=== PATIENT | female | born 1980 | race Caucasian/White ===

== ENCOUNTER 2017-08-20 20:54 | Emergency (ER) | payer BC, MEDICAID, OTHER ==
[2017-08-20 20:54] VITALS: BMI 38.7
[2017-08-20 21:00] VITALS: BP 142/94; TEMP 98.7
--- NOTE | 2017-08-20 21:49 | ED PDOC ---
Arrival/HPI - General Historian: Patient - History of Present Illness Time/Duration: 1 week Symptom Course: Worsening Quality: Burning Context: Exertion - General Chief Complaint: Lower Extremity Problem/Injury Time Seen by Provider: 08/20/17 21:07 - History of Present Illness Narrative History of Present Illness (Text): 08/20/17 21:46 This is a 37 yo female with pmh of diabetes and asthma presenting with leg swelling x 1 week. Never happened before. Pt says she was diagnosed with DM last year but was recently told her A1C was normal and she could stop taking her diabetic medications. Reports burning in her toes as well. Reports some chronic sob related to her smoking. No fevers, chills, cough, other systemic sx. PMH: DM, asthma PSH: C section Allergies: NKDA FH: Denies Home meds: none Social hx: Current smoker. 1 ppd. No drinking or drugs. (Damian Rizo) Past Medical History - Provider Review Nursing Documentation Reviewed: Yes - Travel History Have you recently traveled outside [place] w/in the past 3 mons?: No - Past History Past History: No Previous - Infectious Disease Hx of Infectious Diseases: None - Cardiac Hx Cardiac Disorders: Yes Hx Hypertension: Yes - Pulmonary Hx Respiratory Disorders: Yes Hx Asthma: Yes Hx Chronic Obstructive Pulmonary Disease (COPD): Yes - Neurological Hx Neurological Disorder: No - HEENT Hx HEENT Disorder: No - Renal Hx Renal Disorder: No - Endocrine/Metabolic Hx Endocrine Disorders: Yes Hx Diabetes Mellitus Type 1: Yes Hx Diabetes Mellitus Type 2: Yes - Hematological/Oncological Hx Blood Disorders: No - Integumentary Hx Dermatological Disorder: No - Musculoskeletal/Rheumatological Hx Musculoskeletal Disorders: Yes Hx Arthritis: Yes - Gastrointestinal Hx Gastrointestinal Disorders: No - Genitourinary/Gynecological Hx Genitourinary Disorders: No - Psychiatric Hx Psychophysiologic Disorder: Yes Hx Anxiety: Yes Hx Depression: Yes Hx Panic Disorder: Yes Hx Post Traumatic Stress Disorder: Yes Hx Substance Use: No - Past Surgical History Past Surgical History: No Previous - Surgical History Hx Section: Yes - Anesthesia Hx Anesthesia: Yes Hx Anesthesia Reactions: No Hx Malignant Hyperthermia: No - Suicidal Assessment Feels Threatened In Home Enviroment: No Family/Social History - Physician Review Nursing Documentation Reviewed: Yes Family/Social History: No Known Family HX Smoking Status: Current Some Days Smoker Hx Alcohol Use: No Hx Substance Use: No Hx Substance Use Treatment: No Allergies/Home Meds Allergies/Adverse Reactions: Allergies No Known Allergies Allergy (Verified 08/20/17 20:57) per patient Home Medications: Home Meds Medication Instructions Recorded Confirmed Haloperidol [Haldol] 0.5 mg PO HS 02/05/14 08/20/17 Insulin Aspart [Novolog] 100 unit SC HS 02/05/14 08/20/17 Insulin Glargine, Recombina 15 unit SC ACTID 02/05/14 08/20/17 [Lantus] Metformin HCl [Metformin] 1,000 mg PO DAILY 02/05/14 08/20/17 Dextroamphetamine/Amphetamine 1 tab PO BID 12/09/15 08/20/17 [Adderall 10 mg Tablet] Dicyclomine HCl 1 tab PO DAILY 12/09/15 08/20/17 Metoclopramide [Reglan] 1 tab PO TID 12/09/15 08/20/17 Ranitidine HCl [[place] 75] 1 tab PO DAILY 12/09/15 08/20/17 Albuterol HFA [Ventolin HFA 90 0.09 mg IH DAILY PRN 12/14/15 08/20/17 mcg/actuation (8 g)] Clonazepam 0.5 mg PO DAILY 12/14/15 08/20/17 Enalapril Maleate [Enalapril] 10 mg PO DAILY 12/14/15 08/20/17 Lactulose [Generlac] 10 gm PO DAILY 12/14/15 08/20/17 buPROPion [Bupropion HCl] 400 mg PO DAILY 12/14/15 08/20/17 Review of Systems - Review of Systems Constitutional: absent: Fatigue, Fevers, Night Sweats Eyes: absent: Vision Changes ENT: absent: Hearing Changes, Tinnitus Respiratory: SOB. absent: Cough, Wheezing Cardiovascular: Calf Pain. absent: Chest Pain, Palpitations Gastrointestinal: absent: Abdominal Pain, Constipation Genitourinary Female: absent: Dysuria, Frequency Musculoskeletal: absent: Arthralgias, Back Pain Skin: absent: Rash, Pruritis Neurological: absent: Headache, Dizziness Endocrine: absent: Diaphoresis, Polyuria Hemo/Lymphatic: absent: Adenopathy, Easy Bleeding Psychiatric: absent: Anxiety, Depression Physical Exam Vital Signs Reviewed: Yes Temperature: Afebrile Blood Pressure: Normal Finger Stick Blood Glucose: 91 - Systems Exam Head: Present: Atraumatic, Normocephalic Pupils: Present: PERRL Extroacular Muscles: Present: EOMI Conjunctiva: Present: Normal Mouth: Present: Moist Mucous Membranes Neck: Present: Normal Range of Motion Respiratory/Chest: Present: Clear to Auscultation Cardiovascular: Present: Regular Rate and Rhythm Abdomen: Present: Normal Bowel Sounds. No: Tenderness, Distention, Peritoneal Signs Upper Extremity: Present: Normal Inspection. No: Cyanosis, Edema Lower Extremity: Present: Edema, CALF TENDERNESS, Tenderness (tenderness right calf) Neurological: Present: GCS=15, CN II-XII Intact, Speech Normal Skin: Present: Warm, Dry Psychiatric: Present: Alert, Oriented x 3, Normal Insight, Normal Concentration Vital Signs Temp Pulse Resp BP Pulse Ox 08/20/17 20:59 98.7 F 98 H 17 142/94 H 98 Medical Decision Making ED Course and Treatment: 08/20/17 22:32 -ordering CBC, CMP -fingerstick -urine preg -venous dopplers B/L lower extremities urine preg negative fingerstick 91 dopplers pending 08/20/17 22:32 (Damian Rizo) In agreement with resident note, which includes further HPI details. Patient was seen and evaluated with resident, came up with plan and treatment together. (Romel Krishnan DO) - RAD Interpretation Radiology Orders: 08/20/17 21:39 DUPLEX LOWER EXTRM VEIN BILAT [US] Stat Disposition/Present on Arrival - Present on Arrival Any Indicators Present on Arrival: No History of DVT/PE: No History of Uncontrolled Diabetes: No Urinary Catheter: No History of Decub. Ulcer: No History Surgical Site Infection Following: None - Disposition Have Diagnosis and Disposition been Completed?: No - Disposition Diagnosis: Leg swelling Referrals: eSbastien Cardona MD [Primary Care Provider] - Follow up with primary Forms: [employer] (Sudanese)
[2017-08-20 22:40] LABS: BASO # 0.05 K/mm3 (0.0-2.0); BASO % 0.5 % (0.0-3.0); EOS # 0.2 (0.0-0.7); EOS % 2.3 % (1.5-5.0); GRAN # 6.28 (1.4-6.5); GRAN % 63.4 % (50.0-68.0); HEMATOCRIT 38.3 % (36.0-48.0); LYMPH # 2.8 (1.2-3.4); LYMPH % 27.7 % (22.0-35.0); MEAN CELL VOLUME 90.3 fl (80.0-105.0); MEAN CORPUSCULAR HEMOGLOBIN 29.5 pg (25.0-35.0); MEAN CORPUSCULAR HGB CONC 32.6 g/dl (31.0-37.0); MEAN PLATELET VOLUME 9.8 fl (7.0-11.0); MONO # 0.6 (0.1-0.6); MONO % 6.1 % (1.0-6.0); RED CELL DISTRIBUTION WIDTH 14.3 % (11.5-14.5); WHITE BLOOD COUNT 9.9 10^3/ul (4.5-11.0)
--- NOTE | 2017-08-20 23:26 | ED PDOC ---
Physical Exam Vital Signs Reviewed: Yes Vital Signs Temp Pulse Resp BP Pulse Ox 08/21/17 00:37 92 H 17 99 08/20/17 20:59 98.7 F 98 H 17 142/94 H 98 Temperature: Afebrile Blood Pressure: Normal Pulse: Regular Respiratory Rate: Normal Appearance: Positive for: Well-Appearing, Non-Toxic, Comfortable Pain Distress: None Mental Status: Positive for: Alert and Oriented X 3 Finger Stick Blood Glucose: 91 - Systems Exam Lower Extremity: Present: Normal Inspection, NORMAL PULSES (Strong DP/PT pulses) , Normal ROM, Neurovascularly Intact, Capillary Refill < 2 s. No: Edema, CALF TENDERNESS (No calf tenderness to palpation), Cyanosis, Tenderness, Swelling ( No swelling to bilateral feet/legs), Erythema (no erythema to bilateral feet/ legs), Deformity, Temperature Abnormalties Medical Decision Making ED Course and Treatment: 08/20/17 23:00 Case endorsed to me by Dr. Krishnan, who saw pt along with medical professionals. Pt , with past medical history of diabetes, presented complaining of burning sensation to right foot/toes. Pt also described occasional transient swelling, none now. Pt had undergone dopple of lower extremities, which was negative for DVT. Awaiting lab prior to final disposition. 08/21/17 00:11 Results of labs all normal. On re-evaluation, pt is well-appearing, in no acute distress. Patient is stable for discharge. Patient was instructed to follow up with physician/clinic in 1-2 days or return if symptoms persist/worsen or new concerning symptoms arise. - Lab Interpretations Lab Results: 08/20/17 22:15 08/20/17 23:35 Lab Results 08/20/17 23:35: Sodium 140, Potassium 3.7, Chloride 110 H, Carbon Dioxide 24, Anion Gap 10, BUN 11, Creatinine 0.7, Est GFR ( Amer) > 60, Est GFR (Non- Af Amer) > 60, Random Glucose 95, Calcium 8.8, Total Bilirubin 0.3, AST 16, ALT 35, Alkaline Phosphatase 59, Total Protein 6.7, Albumin 3.5, Globulin 3.2, Albumin/Globulin Ratio 1.1 08/20/17 22:15: WBC 9.9, RBC 4.24, Hgb 12.5, Hct 38.3, MCV 90.3, MCH 29.5, MCHC 32.6, RDW 14.3, Plt Count 274, MPV 9.8, Gran % 63.4, Lymph % (Auto) 27.7, [place] % (Auto) 6.1 H, Eos % (Auto) 2.3, Baso % (Auto) 0.5, Gran # 6.28, Lymph # 2.8, [place] # 0.6, Eos # 0.2, Baso # 0.05 I have reviewed the lab results: Yes - RAD Interpretation Radiology Orders: 08/20/17 21:39 DUPLEX LOWER EXTRM VEIN BILAT [US] Stat - Medication Orders Current Medication Orders: Ibuprofen (Motrin Tab) 600 mg PO STAT STA Stop: 08/21/17 00:43 Disposition/Present on Arrival - Present on Arrival Any Indicators Present on Arrival: No History of DVT/PE: No History of Uncontrolled Diabetes: No Urinary Catheter: No History of Decub. Ulcer: No History Surgical Site Infection Following: None - Disposition Have Diagnosis and Disposition been Completed?: Yes Diagnosis: Diabetic neuropathy Disposition: HOME/ ROUTINE Disposition Time: 00:39 Patient Plan: Discharge Condition: GOOD Discharge Instructions (ExitCare): Diabetic Neuropathy (ED) Additional Instructions: Take meds as prescribed/follow up with your doctor this week Prescriptions: Naproxen [Naprosyn] 500 mg PO BID PRN #14 tab PRN Reason: Pain Referrals: Sebastien Cardona MD [Primary Care Provider] - Follow up with primary Forms: [employer] (Macedonian)
[2017-08-20 23:57] LABS: ALB/GLOB RATIO 1.1 (1.1-1.8); ALKALINE PHOSPHATASE 59 U/L (38-126); ALT/SGPT 35 U/L (7-56); AST/SGOT 16 U/L (14-36); BILIRUBIN,TOTAL 0.3 mg/dL (0.2-1.3); BLOOD UREA NITROGEN 11 mg/dL (7-21); CALCIUM 8.8 mg/dL (8.4-10.5); CARBON DIOXIDE 24 mmol/L (21-33); CHLORIDE 110 mmol/L (98-107); GFR AFRICAN-AMERICAN > 60; GLUCOSE,RANDOM 95 mg/dL (70-110); POTASSIUM 3.7 mmol/L (3.6-5.0); SODIUM 140 mmol/L (132-148); TOTAL PROTEIN 6.7 g/dL (5.8-8.3)
[2017-08-21 00:37] VITALS: PULSE 92
[2017-08-21 01:12] VITALS: RESP 19; O2SAT 98
--- NOTE | 2017-08-21 09:02 | US ---
HISTORY: Leg pain and swelling. Evaluate for DVT PHYSICIAN(S): Elton Weiner MD. TECHNIQUE: Duplex sonography and color-flow Doppler with graded compression were used to evaluate the deep venous systems of both lower extremities. FINDINGS: The visualized deep venous systems of both lower extremities are sonographically normal and compressible. Normal wave forms and augmentation are seen. There is no sonographic evidence for deep venous thrombosis in the visualized segments of both lower extremities. IMPRESSION: No sonographic evidence for deep venous thrombosis in the visualized segments of both lower extremities.
== END 2017-08-21 01:12 | disposition home or self-care (01) ==
LOC: ED 20:54
DX: M79.89 Other specified soft tissue disorders (principal); E11.9 Type 2 diabetes mellitus without complications; I10 Essential (primary) hypertension; F17.210 Nicotine dependence, cigarettes, uncomplicated

== ENCOUNTER 2017-12-26 11:48 | Emergency (ER) | payer BC, MEDICAID, OTHER ==
[2017-12-26 11:48] VITALS: BMI 38.0
--- NOTE | 2017-12-26 12:05 | ED PDOC ---
Arrival/HPI - General Chief Complaint: Pain, Chronic Time Seen by Provider: 12/26/17 11:52 Historian: Patient - History of Present Illness Narrative History of Present Illness (Text): 12/26/17 12:00 A 37 year old female, whose past medical history includes diabetes, presents to the emergency department complaining of pain to bilateral feet for 1 week. Patient describes the pain as a burning sensation. Patient use to be morbidly obese and then lost 170 pounds. Patients sugar level regulated and was instructed to stop taking Insulin and Gabapentin approximately 1 year ago. Patient has not followed up with her PMD since. Patient notes chronic neck pain from a bulging disc. She reports receiving injections for her pain but also stopped following up with pain management 1 year ago. Patient denies any trauma , injury, fever, chills, nausea, vomiting, abdominal pain, chest pain, shortness of breath or any other complaints. Time/Duration: 1 week Symptom Course: Unchanged Quality: Burning Context: Home Past Medical History - Provider Review Nursing Documentation Reviewed: Yes - Past History Past History: No Previous - Infectious Disease Hx of Infectious Diseases: None - Cardiac Hx Cardiac Disorders: Yes Hx Hypertension: Yes - Pulmonary Hx Respiratory Disorders: Yes Hx Asthma: Yes Hx Chronic Obstructive Pulmonary Disease (COPD): Yes - Neurological Hx Neurological Disorder: Yes Other/Comment: NEUROPATHY - HEENT Hx HEENT Disorder: No - Renal Hx Renal Disorder: No - Endocrine/Metabolic Hx Endocrine Disorders: Yes Hx Diabetes Mellitus Type 1: Yes Hx Diabetes Mellitus Type 2: Yes - Hematological/Oncological Hx Blood Disorders: No - Integumentary Hx Dermatological Disorder: No - Musculoskeletal/Rheumatological Hx Musculoskeletal Disorders: Yes Hx Arthritis: Yes Hx Herniated Disk: Yes - Gastrointestinal Hx Gastrointestinal Disorders: No - Genitourinary/Gynecological Hx Genitourinary Disorders: No - Psychiatric Hx Psychophysiologic Disorder: Yes Hx Anxiety: Yes Hx Depression: Yes Hx Post Traumatic Stress Disorder: Yes Hx Substance Use: No - Past Surgical History Past Surgical History: No Previous - Surgical History Hx Section: Yes - Anesthesia Hx Anesthesia: Yes Hx Anesthesia Reactions: No Hx Malignant Hyperthermia: No - Suicidal Assessment Feels Threatened In Home Enviroment: No Family/Social History - Physician Review Nursing Documentation Reviewed: Yes Family/Social History: No Known Family HX Smoking Status: Heavy Smoker > 10 Cigarettes Daily Hx Alcohol Use: No Hx Substance Use: No Hx Substance Use Treatment: No Allergies/Home Meds Allergies/Adverse Reactions: Allergies No Known Allergies Allergy (Verified 12/26/17 11:54) per patient Review of Systems - Physician Review All systems were reviewed & negative as marked: Yes - Review of Systems Constitutional: absent: Fevers, Night Sweats Respiratory: absent: SOB Cardiovascular: absent: Chest Pain Gastrointestinal: absent: Abdominal Pain, Nausea, Vomiting Musculoskeletal: Neck Pain (chronic), Other (bilateral feet pain) Physical Exam Vital Signs Temp Pulse Resp BP Pulse Ox 12/26/17 12:05 98.6 F 88 18 137/78 100 Appearance: Positive for: Well-Appearing, Non-Toxic, Comfortable Pain Distress: None Mental Status: Positive for: Alert and Oriented X 3 - Systems Exam Head: Present: Atraumatic, Normocephalic Pupils: Present: PERRL Extroacular Muscles: Present: EOMI Conjunctiva: Present: Normal Mouth: Present: Moist Mucous Membranes Neck: Present: Normal Range of Motion Respiratory/Chest: Present: Clear to Auscultation, Good Air Exchange. No: Respiratory Distress, Accessory Muscle Use Cardiovascular: Present: Regular Rate and Rhythm, Normal S1, S2. No: Murmurs Abdomen: Present: Normal Bowel Sounds. No: Tenderness, Distention, Peritoneal Signs Upper Extremity: Present: Normal Inspection. No: Cyanosis, Edema Lower Extremity: Present: Normal Inspection, NORMAL PULSES, Normal ROM, Neurovascularly Intact. No: Edema, CALF TENDERNESS, Tenderness, Swelling, Erythema, Deformity, Temperature Abnormalties Neurological: Present: GCS=15, CN II-XII Intact, Speech Normal Skin: Present: Warm, Dry, Normal Color. No: Rashes Psychiatric: Present: Alert, Oriented x 3, Normal Insight, Normal Concentration Medical Decision Making ED Course and Treatment: 12/26/17 12:00 Impression: A 37 year old female with bilateral feet pain. Patient notes chronic neck pain. Differential Diagnosis included but are not limited to: Diabetic neuropathy Plan: -- Labs -- Toradol and Lyrica -- Reassess and disposition Progress Notes: - Lab Interpretations Lab Results: 12/26/17 12:50 12/26/17 12:50 Lab Results 12/26/17 12:50: pO2 49, VBG pH 7.32, VBG pCO2 52.0, VBG HCO3 26.8, VBG Total CO2 28.4 H, VBG O2 Sat (Calc) 86.8 H, VBG Base Excess -0.1 L, VBG Potassium 3.4 L, Sodium 140.0, Chloride 108.0 H, Glucose 95, Lactate 1.0, FiO2 21.0, Venous Blood Potassium 3.4 L 12/26/17 12:50: Sodium 144, Chloride 111 H, Potassium 3.6, Carbon Dioxide 23, Anion Gap 14, BUN 10, Creatinine 0.7, Est GFR ( Amer) > 60, Est GFR (Non- Af Amer) > 60, Random Glucose 99, Calcium 9.1, Total Bilirubin < 0.1 L, AST 16, ALT 24, Alkaline Phosphatase 60, Total Protein 6.8, Albumin 3.7, Globulin 3.1, Albumin/Globulin Ratio 1.2 12/26/17 12:50: WBC 8.9, RBC 4.48, Hgb 13.1, Hct 39.9, MCV 89.1, MCH 29.2, MCHC 32.8, RDW 14.5, Plt Count 231, MPV 9.5, Gran % 68.8 H, Lymph % (Auto) 22.7, [place] % (Auto) 6.2 H, Eos % (Auto) 2.1, Baso % (Auto) 0.2, Gran # 6.12, Lymph # ( Auto) 2.0, [place] # (Auto) 0.6, Eos # (Auto) 0.2, Baso # (Auto) 0.02 12/26/17 12:02: POC Glucose (mg/dL) 130 H I have reviewed the lab results: Yes - Medication Orders Current Medication Orders: Discontinued Medications Ketorolac Tromethamine (Toradol) 60 mg IM STAT STA Stop: 12/26/17 12:04 Last Admin: 12/26/17 12:28 Dose: 60 mg MAR Pain Assessment Document 12/26/17 12:28 [facility] (Rec: 12/26/17 12:29 [facility] [id number]) Pain Reassessment Is this a pain reassessment? No IM Administration Charges Document 12/26/17 12:28 [facility] (Rec: 12/26/17 12:29 [facility] [id number]) Injection Site MAR Injection Site Left Deltoid Charges for Administration # of IM Administrations 1 Pregabalin (Lyrica) 100 mg PO ONCE ONE Stop: 12/26/17 12:03 Last Admin: 12/26/17 12:28 Dose: 100 mg - Scribe Statement The provider has reviewed the documentation as recorded by the Mathieu Meng Provider Gabyibe Attestation: All medical record entries made by the Scribe were at my direction and personally dictated by me. I have reviewed the chart and agree that the record accurately reflects my personal performance of the history, physical exam, medical decision making, and the department course for this patient. I have also personally directed, reviewed, and agree with the discharge instructions and disposition. Disposition/Present on Arrival - Present on Arrival Any Indicators Present on Arrival: No History of DVT/PE: No History of Uncontrolled Diabetes: No Urinary Catheter: No History of Decub. Ulcer: No History Surgical Site Infection Following: None - Disposition Have Diagnosis and Disposition been Completed?: Yes Diagnosis: Diabetic neuropathy, Cervical radiculopathy Disposition: HOME/ ROUTINE Disposition Time: 13:23 Patient Plan: Discharge Condition: GOOD Discharge Instructions (ExitCare): Diabetic Neuropathy Additional Instructions: Annamarie- Radha that you are hurting. Your labs look, your blood sugar was 130, which can be normal when it is done non fasting. Follow up with your doctors. In the meanwhile, I wrote prescriptions for Motrin 800 mg three times a day, and Lyrica 100 mg twice a day for your pain. Return to us if any problems. Guy- Dr. Ilir Mitchell Prescriptions: Ibuprofen [Motrin Tab] 800 mg PO TID #30 tab Pregabalin [Lyrica] 100 mg PO BID #20 capsule Forms: [employer] (Divehi)
[2017-12-26 12:06] VITALS: RESP 18; TEMP 98.6
[2017-12-26 12:59] LABS: VENOUS BLOOD GAS BASE EXCESS -0.1 mmol/L (0.0-2.0); VENOUS BLOOD GAS PO2 49 mm/Hg (30-55); VENOUS BLOOD PH 7.32 (7.32-7.43)
[2017-12-26 13:07] LABS: BASO # 0.02 K/mm3 (0.0-2.0); BASO % 0.2 % (0.0-3.0); EOS # 0.2 (0.0-0.7); EOS % 2.1 % (1.5-5.0); GRAN # 6.12 (1.4-6.5); GRAN % 68.8 % (50.0-68.0); HEMOGLOBIN 13.1 g/dL (12.0-16.0); LYMPH % 22.7 % (22.0-35.0); MEAN CELL VOLUME 89.1 fl (80.0-105.0); MEAN CORPUSCULAR HEMOGLOBIN 29.2 pg (25.0-35.0); MEAN CORPUSCULAR HGB CONC 32.8 g/dl (31.0-37.0); MEAN PLATELET VOLUME 9.5 fl (7.0-11.0); MONO # 0.6 (0.1-0.6); MONO % 6.2 % (1.0-6.0); RBC 4.48 10^6/uL (3.5-6.1); RED CELL DISTRIBUTION WIDTH 14.5 % (11.5-14.5); WHITE BLOOD COUNT 8.9 10^3/ul (4.5-11.0)
[2017-12-26 13:08] LABS: ALB/GLOB RATIO 1.2 (1.1-1.8); ALBUMIN 3.7 g/dL (3.0-4.8); ALT/SGPT 24 U/L (7-56); AST/SGOT 16 U/L (14-36); BLOOD UREA NITROGEN 10 mg/dL (7-21); CALCIUM 9.1 mg/dL (8.4-10.5); GFR AFRICAN-AMERICAN > 60; GFR NON-AFRICAN AMERICAN > 60
[2017-12-26 13:54] VITALS: BP 123/77; PULSE 78; O2SAT 97
== END 2017-12-26 13:53 | disposition home or self-care (01) ==
LOC: ED 11:48
DX: E11.40 Type 2 diabetes mellitus with diabetic neuropathy, unspecified (principal); M54.12 Radiculopathy, cervical region; E66.01 Morbid (severe) obesity due to excess calories; I10 Essential (primary) hypertension; F17.210 Nicotine dependence, cigarettes, uncomplicated; J44.9 Chronic obstructive pulmonary disease, unspecified
CPT/HCPCS: 80053; 82803; 82948; 85025; 96372; 99283; J1885

== ENCOUNTER 2018-01-05 16:10 | Emergency (ER) | payer OTHER ==
[2018-01-05 16:11] VITALS: BMI 38.0
--- NOTE | 2018-01-05 16:19 | ED PDOC ---
Arrival/HPI - General Time Seen by Provider: 01/05/18 16:13 Historian: Patient - History of Present Illness Narrative History of Present Illness (Text): 01/05/18 16:35 37 year old female, whose past medical history includes diabetes with neuropathy , psychiatric history including drug abuse, was brought in by EMS to the emergency department after patient was found using PCP 2 hours prior to arrival. Patient states she was using usual amount of PCP and drove to work, which workers at her job stated patient to have abnormal behavior, later the patient stated that she used the PCP prior came to work. Patient stated she used PCP and currently in emergency department complaining of feeling tired and sleepy, no fall or trauma, no numbness or tingling. Patient denies any suicidal ideation, homicidal ideation, auditory hallucinations, visual hallucination, or any other complaints at this time. Time/Duration: 1-3 hours Symptom Onset: Sudden Symptom Course: Unchanged Activities at Onset: Rest Past Medical History - Provider Review Nursing Documentation Reviewed: Yes - Past History Past History: No Previous - Infectious Disease Hx of Infectious Diseases: None - Cardiac Hx Cardiac Disorders: Yes Hx Hypertension: Yes - Pulmonary Hx Respiratory Disorders: Yes Hx Asthma: Yes Hx Chronic Obstructive Pulmonary Disease (COPD): Yes - Neurological Hx Neurological Disorder: Yes Other/Comment: NEUROPATHY - HEENT Hx HEENT Disorder: No - Renal Hx Renal Disorder: No - Endocrine/Metabolic Hx Endocrine Disorders: Yes Hx Diabetes Mellitus Type 1: Yes Hx Diabetes Mellitus Type 2: Yes - Hematological/Oncological Hx Blood Disorders: No - Integumentary Hx Dermatological Disorder: No - Musculoskeletal/Rheumatological Hx Musculoskeletal Disorders: Yes Hx Arthritis: Yes Hx Herniated Disk: Yes - Gastrointestinal Hx Gastrointestinal Disorders: No - Genitourinary/Gynecological Hx Genitourinary Disorders: No - Psychiatric Hx Psychophysiologic Disorder: Yes Hx Anxiety: Yes Hx Depression: Yes Hx Post Traumatic Stress Disorder: Yes Hx Substance Use: No - Past Surgical History Past Surgical History: No Previous - Surgical History Hx Section: Yes - Anesthesia Hx Anesthesia: Yes Hx Anesthesia Reactions: No Hx Malignant Hyperthermia: No - Suicidal Assessment Feels Threatened In Home Enviroment: No Family/Social History - Physician Review Nursing Documentation Reviewed: Yes Family/Social History: No Known Family HX Smoking Status: Heavy Smoker > 10 Cigarettes Daily Hx Alcohol Use: No Hx Substance Use: No Hx Substance Use Treatment: No Allergies/Home Meds Allergies/Adverse Reactions: Allergies No Known Allergies Allergy (Verified 12/26/17 11:54) per patient Review of Systems - Physician Review All systems were reviewed & negative as marked: Yes - Review of Systems Constitutional: absent: Fatigue, Fevers ENT: absent: Hearing Changes Cardiovascular: absent: Chest Pain Gastrointestinal: absent: Abdominal Pain, Nausea, Vomiting Musculoskeletal: absent: Arthralgias Skin: absent: Rash, Pruritis Neurological: absent: Headache, Dizziness Psychiatric: absent: Anxiety, Depression, Suicidal Ideation Physical Exam Vital Signs Reviewed: Yes Vital Signs Temp Pulse Resp BP Pulse Ox 01/05/18 16:11 98.4 F 84 18 152/86 H 99 Temperature: Afebrile Blood Pressure: Hypertensive Pulse: Regular Respiratory Rate: Normal Appearance: Positive for: Well-Appearing, Non-Toxic, Comfortable Pain Distress: None Mental Status: Positive for: Alert and Oriented X 3 - Systems Exam Head: Present: Atraumatic, Normocephalic Pupils: Present: PERRL. No: Sluggish, Pinpoint Extroacular Muscles: Present: EOMI Conjunctiva: Present: Normal Mouth: Present: Moist Mucous Membranes Neck: Present: Normal Range of Motion. No: MIDLINE TENDERNESS, Paraspinal Tenderness Respiratory/Chest: Present: Clear to Auscultation, Good Air Exchange. No: Respiratory Distress, Accessory Muscle Use Cardiovascular: Present: Regular Rate and Rhythm, Normal S1, S2. No: Murmurs Abdomen: No: Tenderness, Distention, Peritoneal Signs Back: Present: Normal Inspection Upper Extremity: Present: Normal Inspection. No: Cyanosis, Edema Lower Extremity: Present: Normal Inspection. No: Edema Neurological: Present: GCS=15, CN II-XII Intact, Speech Normal Skin: Present: Warm, Dry, Normal Color. No: Rashes Psychiatric: Present: Alert, Oriented x 3, Normal Insight, Normal Concentration. No: Anxious, Depressed Mood, Delusional, Hallucinations Medical Decision Making ED Course and Treatment: 01/05/18 16:33 Impression: A 37 year old female with PCP use. Plan: -- Reassess and disposition Progress Notes: Patient in the emergency department, declines psychiatric evaluation, including detox. Plan is to keep patient in the emergency department, drug screen and reassess in two hours. 01/05/18 17:27 -Urine hcg is negative. -Drug screen show positive PCP. -Case discussed with the ER attending DR. Lopez and he agreed on the treatment/discharge plan. -Pt. is awake, had a nap in the ER, no slurred speech, no bizzare behavior, walking with no gait and posture, no focal neurological deficits, asking to be discharged, no homicidal or suicidal ideation, no auditory or visual hallucination, refused detox. All questions ask and answer, pt. has no other question. -Discharge home with education on follow up with your own pmd within 2 days, avoid using PCP, return to the ER for any new or worsening signs or symptoms. - Lab Interpretations Lab Results: Lab Results 01/05/18 16:25: Urine Opiates Screen Negative, Urine Methadone Screen Negative, Ur Barbiturates Screen Negative, Ur Phencyclidine Scrn Positive H, Ur Amphetamines Screen Negative, U Benzodiazepines Scrn Negative, U Oth Cocaine Metabols Negative, U Cannabinoids Screen Negative - PA / BOILER WELDER / Resident Statement MD/DO has reviewed & agrees with the documentation as recorded. - Scribe Statement The provider has reviewed the documentation as recorded by the Mathieu Lopez Provider Scribe Attestation: All medical record entries made by the Mathieu were at my direction and personally dictated by me. I have reviewed the chart and agree that the record accurately reflects my personal performance of the history, physical exam, medical decision making, and the department course for this patient. I have also personally directed, reviewed, and agree with the discharge instructions and disposition. Disposition/Present on Arrival - Present on Arrival Any Indicators Present on Arrival: No History of DVT/PE: No History of Uncontrolled Diabetes: No Urinary Catheter: No History of Decub. Ulcer: No History Surgical Site Infection Following: None - Disposition Have Diagnosis and Disposition been Completed?: Yes Diagnosis: Drug abuse Disposition: HOME/ ROUTINE Disposition Time: 16:39 Patient Plan: Discharge Patient Problems: Current Active Problems Problem Status Onset Drug abuse Acute Condition: IMPROVED Additional Instructions: -Discharge home with education on follow up with your own pmd within 2 days, avoid using PCP, return to the ER for any new or worsening signs or symptoms. Referrals: PCP,NO [Primary Care Provider] - Follow up with primary Forms: WORK NOTE
[2018-01-05 16:24] VITALS: BP 152/86; PULSE 84; RESP 18; TEMP 98.4; O2SAT 99
[2018-01-05 17:15] LABS: BARBITURATES, UR NEGATIVE (NEGATIVE); BENZODIAZEPINES, UR NEGATIVE (NEGATIVE); OPIATES, UR NEGATIVE (NEGATIVE); PHENCYCLIDINE, UR POSITIVE (NEGATIVE)
== END 2018-01-05 17:33 | disposition home or self-care (01) ==
LOC: ED 16:10
DX: F19.10 Other psychoactive substance abuse, uncomplicated (principal)

== ENCOUNTER 2018-01-08 09:28 | Emergency (ER) | payer OTHER ==
[2018-01-08 09:36] VITALS: RESP 18; TEMP 98.1
[2018-01-08 09:38] VITALS: BMI 31.9
--- NOTE | 2018-01-08 11:01 | ED PDOC ---
Arrival/HPI - General Chief Complaint: Substance Abuse Time Seen by Provider: 01/08/18 10:12 Historian: Patient - History of Present Illness Narrative History of Present Illness (Text): 01/08/18 10:55 Patient is a 37 yo female with PMH of diabetes and anxiety who presents to the Emergency department with the complaints of shortness of breath, anxiety and sharp chest pain. She explains that her son called the ambulance because he thought she was "bugging out". She admits to using 1 blunt of marijuana with PCP last night at 12am, which she does 1-2 times/week. She denies suicidal ideation, homicidal ideation, hallucinations, cough, nausea, vomiting, diarrhea , constipation, headache, dizziness, numbness and tingling. She smokes 1 ppd for 14 years and denies alcohol and other drug use. Time/Duration: 4-6 hours Symptom Onset: Gradual Symptom Course: Improving Quality: Stabbing Activities at Onset: Emotional Upset Context: Home Past Medical History - Provider Review Nursing Documentation Reviewed: Yes - Past History Past History: No Previous - Infectious Disease Hx of Infectious Diseases: None - Cardiac Hx Cardiac Disorders: Yes Hx Hypertension: Yes - Pulmonary Hx Respiratory Disorders: Yes Hx Asthma: Yes Hx Chronic Obstructive Pulmonary Disease (COPD): Yes - Neurological Hx Neurological Disorder: Yes Other/Comment: NEUROPATHY - HEENT Hx HEENT Disorder: No - Renal Hx Renal Disorder: No - Endocrine/Metabolic Hx Endocrine Disorders: Yes Hx Diabetes Mellitus Type 1: Yes Hx Diabetes Mellitus Type 2: Yes - Hematological/Oncological Hx Blood Disorders: No - Integumentary Hx Dermatological Disorder: No - Musculoskeletal/Rheumatological Hx Musculoskeletal Disorders: Yes Hx Arthritis: Yes Hx Herniated Disk: Yes - Gastrointestinal Hx Gastrointestinal Disorders: No - Genitourinary/Gynecological Hx Genitourinary Disorders: No - Psychiatric Hx Psychophysiologic Disorder: Yes Hx Anxiety: Yes Hx Depression: Yes Hx Post Traumatic Stress Disorder: Yes Hx Substance Use: No - Past Surgical History Past Surgical History: No Previous - Surgical History Hx Section: Yes - Anesthesia Hx Anesthesia: Yes Hx Anesthesia Reactions: No Hx Malignant Hyperthermia: No - Suicidal Assessment Feels Threatened In Home Enviroment: No Family/Social History - Physician Review Nursing Documentation Reviewed: Yes Family/Social History: No Known Family HX Smoking Status: Heavy Smoker > 10 Cigarettes Daily Hx Alcohol Use: No Hx Substance Use: Yes Substance used: PCP, marijuana Hx Substance Use Treatment: No Allergies/Home Meds Allergies/Adverse Reactions: Allergies No Known Allergies Allergy (Verified 01/08/18 09:47) per patient Review of Systems - Physician Review All systems were reviewed & negative as marked: Yes - Review of Systems Eyes: absent: Other Respiratory: SOB. absent: Cough Cardiovascular: Chest Pain Gastrointestinal: absent: Constipation, Diarrhea, Nausea, Vomiting Neurological: absent: Headache, Dizziness, Focal Weakness Psychiatric: Anxiety. absent: Suicidal Ideation, Other (homicidal ideation, hallucinations) Physical Exam Vital Signs Reviewed: Yes Vital Signs Temp Pulse Resp BP Pulse Ox 01/08/18 16:39 72 18 125/75 100 01/08/18 14:00 72 18 148/77 99 01/08/18 12:55 75 18 141/74 100 01/08/18 11:51 79 18 148/79 99 01/08/18 09:36 98.1 F 88 18 154/88 H 99 Temperature: Afebrile Blood Pressure: Hypertensive Pulse: Regular Respiratory Rate: Normal Finger Stick Blood Glucose: 92 - Systems Exam Head: Present: Atraumatic, Normocephalic Pupils: Present: Other (difficulty keeping them open, constricted ) Neck: Present: Normal Range of Motion Respiratory/Chest: Present: Clear to Auscultation, Good Air Exchange. No: Respiratory Distress, Accessory Muscle Use Cardiovascular: Present: Regular Rate and Rhythm, Normal S1, S2. No: Murmurs Upper Extremity: Present: Normal Inspection, Normal ROM. No: Cyanosis, Edema Lower Extremity: Present: Normal Inspection, Normal ROM. No: Edema Skin: Present: Warm, Dry, Normal Color. No: Rashes Medical Decision Making ED Course and Treatment: 01/08/18 10:55 Impression: A 37 year old female brought in for substance abuse. Patient complains of shortness of breath, anxiety and sharp chest pain. Plan: -- EKG -- Labs -- Urinalysis -- Reassess and disposition Progress Notes: 01/08/18 17:39 serial ce's/EKG shows at BPM with with no prior for comparison. Interpreted by me.'s (-) for troponinemia/ nor ischemic st-t- changes - Lab Interpretations Lab Results: 01/08/18 11:18 01/08/18 11:18 Lab Results 01/08/18 15:20: Troponin I < 0.01 01/08/18 13:51: Urine Opiates Screen Negative, Urine Methadone Screen Negative, Ur Barbiturates Screen Negative, Ur Phencyclidine Scrn Positive H, Ur Amphetamines Screen Negative, U Benzodiazepines Scrn Negative, U Oth Cocaine Metabols Negative, U Cannabinoids Screen Negative 01/08/18 13:51: Urine Color Yellow, Urine Appearance Sl cloudy, Urine pH 6.0, Ur Specific [place] 1.020, Urine Protein Negative, Urine Glucose (UA) Negative, Urine Ketones Negative, Urine Blood Moderate H, Urine Nitrate Negative, Urine Bilirubin Negative, Urine Urobilinogen 0.2, Ur Leukocyte Esterase Negative, Urine RBC 2 - 5, Urine WBC 0 - 2, Ur Epithelial Cells 4 - 5, Urine Bacteria Few 01/08/18 11:18: Salicylates < 1 L, Acetaminophen < 10.0 L 01/08/18 11:18: Alcohol, Quantitative < 10 01/08/18 11:18: Sodium 143, Potassium 4.2, Chloride 110 H, Carbon Dioxide 26, Anion Gap 11, BUN 13, Creatinine 0.7, Est GFR ( Amer) > 60, Est GFR (Non- Af Amer) > 60, Random Glucose 87, Calcium 8.9, Phosphorus 4.0, Magnesium 2.2, Total Bilirubin 0.1 L, AST 13 L, ALT 21, Alkaline Phosphatase 53, Lactate Dehydrogenase 419, Total Creatine Kinase 68, Troponin I < 0.01, Total Protein 6.7, Albumin 3.5, Globulin 3.2, Albumin/Globulin Ratio 1.1 01/08/18 11:18: PT 11.3, INR 0.98, APTT 33.9 01/08/18 11:18: WBC 9.0, RBC 4.27, Hgb 12.5, Hct 38.5, MCV 90.2, MCH 29.3, MCHC 32.5, RDW 14.6 H, Plt Count 227, MPV 9.6, Gran % 68.2 H, Lymph % (Auto) 24.3, [place] % (Auto) 5.4, Eos % (Auto) 1.8, Baso % (Auto) 0.3, Gran # 6.16, Lymph # ( Auto) 2.2, [place] # (Auto) 0.5, Eos # (Auto) 0.2, Baso # (Auto) 0.03 I have reviewed the lab results: Yes Disposition/Present on Arrival - Present on Arrival Any Indicators Present on Arrival: No History of DVT/PE: No History of Uncontrolled Diabetes: No Urinary Catheter: No History of Decub. Ulcer: No History Surgical Site Infection Following: None - Disposition Have Diagnosis and Disposition been Completed?: Yes Diagnosis: Phencyclidine (PCP) intoxication, Polysubstance abuse, Chest pain Disposition: HOME/ ROUTINE Disposition Time: 17:41 Patient Plan: Discharge Condition: IMPROVED Discharge Instructions (ExitCare): Chest Pain (ED), Drug Abuse Treatment Print Language: ESTONIAN Additional Instructions: Please refrain from abusing phencyclidine or PCP as it will ruin your psychological health, and your reputation . If you suffer recurring chest pain , then please return to Emergency department for further evaluation , and you are advised to follow up with the sommelier listed Referrals: PCP,NO [Primary Care Provider] - Follow up with primary Elton Desai MD [Staff Provider] - Follow up with primary Forms: [employer] (Spanish)
[2018-01-08 11:31] LABS: BASO # 0.03 K/mm3 (0.0-2.0); BASO % 0.3 % (0.0-3.0); EOS # 0.2 (0.0-0.7); EOS % 1.8 % (1.5-5.0); GRAN # 6.16 (1.4-6.5); GRAN % 68.2 % (50.0-68.0); HEMOGLOBIN 12.5 g/dL (12.0-16.0); LYMPH # 2.2 (1.2-3.4); LYMPH % 24.3 % (22.0-35.0); MEAN CELL VOLUME 90.2 fl (80.0-105.0); MEAN CORPUSCULAR HEMOGLOBIN 29.3 pg (25.0-35.0); MEAN CORPUSCULAR HGB CONC 32.5 g/dl (31.0-37.0); MEAN PLATELET VOLUME 9.6 fl (7.0-11.0); MONO # 0.5 (0.1-0.6); MONO % 5.4 % (1.0-6.0); RBC 4.27 10^6/uL (3.5-6.1); RED CELL DISTRIBUTION WIDTH 14.6 % (11.5-14.5)
[2018-01-08 11:41] LABS: INR 0.98 (0.93-1.08); PARTIAL THROMBOPLASTIN TIME 33.9 Seconds (25.1-36.5); PROTHROMBIN TIME 11.3 SECONDS (9.4-12.5)
[2018-01-08 11:44] LABS: ACETAMINOPHEN < 10.0 ug/ml (10.0-20.0); SALICYLATE < 1 mg/dL (2.0-20.0)
[2018-01-08 11:45] LABS: ALB/GLOB RATIO 1.1 (1.1-1.8); ALBUMIN 3.5 g/dL (3.0-4.8); ALT/SGPT 21 U/L (7-56); AST/SGOT 13 U/L (14-36); BLOOD UREA NITROGEN 13 mg/dL (7-21); CALCIUM 8.9 mg/dL (8.4-10.5); GFR AFRICAN-AMERICAN > 60; GFR NON-AFRICAN AMERICAN > 60
[2018-01-08 11:50] LABS: TROPONIN I < 0.01 ng/mL
--- NOTE | 2018-01-08 12:28 | CARD ---
APPROVED REPORT EKG Measurement Heart [id number] <Conclusion> Normal sinus rhythm Normal ECG
[2018-01-08 14:03] LABS: URINE BILIRUBIN NEGATIVE (NEGATIVE); URINE BLOOD MODERATE (NEGATIVE); URINE GLUCOSE (UA) NEGATIVE (NEGATIVE); URINE LEUKOCYTE ESTERASE NEGATIVE Leu/uL (NEGATIVE); URINE PROTEIN NEGATIVE mg/dL (<30 mg/dL); URINE UROBILINOGEN 0.2 E.U./dL (<1 E.U./dL)
[2018-01-08 14:06] LABS: URINE APPEARANCE SL CLOUDY (CLEAR); URINE COLOR YELLOW (YELLOW)
[2018-01-08 14:16] LABS: URINE BACTERIA FEW (NEG); URINE WBC 0 - 2 /hpf (0-6)
[2018-01-08 14:21] LABS: BARBITURATES, UR NEGATIVE (NEGATIVE); BENZODIAZEPINES, UR NEGATIVE (NEGATIVE); OPIATES, UR NEGATIVE (NEGATIVE); PHENCYCLIDINE, UR POSITIVE (NEGATIVE)
[2018-01-08 14:54] VITALS: PULSE 72
[2018-01-08 16:40] VITALS: BP 125/75; O2SAT 100
== END 2018-01-08 18:05 | disposition home or self-care (01) ==
LOC: ED 09:28
DX: F16.129 Hallucinogen abuse with intoxication, unspecified (principal); R07.9 Chest pain, unspecified; I10 Essential (primary) hypertension; F41.9 Anxiety disorder, unspecified; F17.210 Nicotine dependence, cigarettes, uncomplicated

== ENCOUNTER 2018-01-09 08:26 | Emergency (ER) | payer OTHER ==
[2018-01-09 08:27] VITALS: BMI 31.9
[2018-01-09 10:02] LABS: BASO # 0.02 K/mm3 (0.0-2.0); BASO % 0.2 % (0.0-3.0); EOS # 0.2 (0.0-0.7); EOS % 1.7 % (1.5-5.0); GRAN # 7.58 (1.4-6.5); HEMOGLOBIN 13.7 g/dL (12.0-16.0); LYMPH % 19.5 % (22.0-35.0); MEAN CELL VOLUME 90.5 fl (80.0-105.0); MEAN CORPUSCULAR HEMOGLOBIN 29.6 pg (25.0-35.0); MEAN CORPUSCULAR HGB CONC 32.7 g/dl (31.0-37.0); MEAN PLATELET VOLUME 10.1 fl (7.0-11.0); MONO # 0.6 (0.1-0.6); MONO % 5.6 % (1.0-6.0); RBC 4.63 10^6/uL (3.5-6.1); RED CELL DISTRIBUTION WIDTH 14.5 % (11.5-14.5); URINE BILIRUBIN NEGATIVE (NEGATIVE); URINE BLOOD MODERATE (NEGATIVE); URINE GLUCOSE (UA) NEGATIVE (NEGATIVE); URINE LEUKOCYTE ESTERASE TRACE Leu/uL (NEGATIVE); URINE PROTEIN NEGATIVE mg/dL (<30 mg/dL); URINE UROBILINOGEN 0.2 E.U./dL (<1 E.U./dL); WHITE BLOOD COUNT 10.4 10^3/ul (4.5-11.0)
[2018-01-09 10:07] LABS: URINE APPEARANCE TURBID (CLEAR); URINE COLOR YELLOW (YELLOW)
[2018-01-09 10:13] LABS: ACETAMINOPHEN < 10.0 ug/ml (10.0-20.0); SALICYLATE < 1 mg/dL (2.0-20.0)
[2018-01-09 10:14] LABS: ALB/GLOB RATIO 1.1 (1.1-1.8); ALBUMIN 3.8 g/dL (3.0-4.8); ALT/SGPT 17 U/L (7-56); AST/SGOT 14 U/L (14-36); BLOOD UREA NITROGEN 13 mg/dL (7-21); CALCIUM 9.1 mg/dL (8.4-10.5); GFR AFRICAN-AMERICAN > 60; GFR NON-AFRICAN AMERICAN > 60
[2018-01-09 10:27] LABS: BARBITURATES, UR NEGATIVE (NEGATIVE); BENZODIAZEPINES, UR NEGATIVE (NEGATIVE); OPIATES, UR NEGATIVE (NEGATIVE); PHENCYCLIDINE, UR POSITIVE (NEGATIVE)
[2018-01-09 10:34] LABS: URINE BACTERIA MANY (NEG); URINE EPITHELIAL CELLS MANY /hpf (0-5); URINE WBC 0 - 2 /hpf (0-6)
[2018-01-09 11:19] VITALS: RESP 18
--- NOTE | 2018-01-09 11:36 | CARD ---
APPROVED REPORT EKG Measurement Heart [id number] ID [id number] <Conclusion> Normal sinus rhythm Normal ECG
--- NOTE | 2018-01-09 12:35 | RAD ---
HISTORY: pes eval COMPARISON: No prior. FINDINGS: LUNGS: No active pulmonary disease. PLEURA: No significant pleural effusion identified, no pneumothorax apparent. CARDIOVASCULAR: Normal. OSSEOUS STRUCTURES: No significant abnormalities. VISUALIZED UPPER ABDOMEN: Normal. OTHER FINDINGS: None. IMPRESSION: No active disease.
--- NOTE | 2018-01-09 13:45 | ED PDOC ---
Arrival/HPI - General Chief Complaint: Psychiatric Evaluation Time Seen by Provider: 01/09/18 08:37 Historian: Patient - History of Present Illness Narrative History of Present Illness (Text): 01/09/18 13:41 37yr old female presents today BIBA for bizarre behavior. Patient admits to using PCP last night. Patient states that she felt overwhelmed today. Patient states she was feeling very anxious. Patient states she has a history of diabetes and PTSD. Patient denies depression. Patient denies suicidal or homicidal ideation. Patient denies chest pain or shortness of breath. Patient denies fevers or chills. Patient denies any urinary symptoms. No abdominal pain. No nausea or vomiting. Patient states she feels as if she just needed to rest. Patient states at this time she is not hearing or seeing anything out of the ordinary. Time/Duration: Prior to Arrival Symptom Course: Improving Past Medical History - Provider Review Nursing Documentation Reviewed: Yes - Travel History Have you recently traveled outside [place] w/in the past 3 mons?: No - Past History Past History: No Previous - Infectious Disease Hx of Infectious Diseases: None - Cardiac Hx Cardiac Disorders: Yes Hx Hypertension: Yes - Pulmonary Hx Tuberculosis: No - Neurological HX Cerebrovascular Accident: No Hx Seizures: No - HEENT Hx HEENT Disorder: No - Renal Hx Renal Disorder: No - Endocrine/Metabolic Hx Endocrine Disorders: Yes Hx Diabetes Mellitus Type 1: Yes Hx Diabetes Mellitus Type 2: Yes - Hematological/Oncological Hx Cancer: No - Integumentary Hx Dermatological Disorder: No - Musculoskeletal/Rheumatological Hx Musculoskeletal Disorders: Yes Hx Arthritis: Yes Hx Herniated Disk: Yes - Gastrointestinal Hx Gastrointestinal Disorders: No - Genitourinary/Gynecological Hx Sexually Transmitted Diseases: No - Psychiatric Hx Psychophysiologic Disorder: Yes Hx Anxiety: Yes Hx Depression: Yes Hx Post Traumatic Stress Disorder: Yes Hx Substance Use: Yes - Past Surgical History Past Surgical History: No Previous - Surgical History Hx Section: Yes - Anesthesia Hx Anesthesia: Yes Hx Anesthesia Reactions: No Hx Malignant Hyperthermia: No - Suicidal Assessment Feels Threatened In Home Enviroment: No Family/Social History - Physician Review Nursing Documentation Reviewed: Yes Family/Social History: Unknown Family HX Smoking Status: Heavy Smoker > 10 Cigarettes Daily Hx Alcohol Use: No Hx Substance Use: Yes Substance used: PCP, marijuana Hx Substance Use Treatment: No Allergies/Home Meds Allergies/Adverse Reactions: Allergies No Known Allergies Allergy (Verified 04/11/18 10:47) per patient Review of Systems - Review of Systems Constitutional: absent: Fatigue, Fevers Respiratory: absent: SOB, Cough Cardiovascular: absent: Chest Pain, Palpitations Gastrointestinal: absent: Abdominal Pain, Nausea, Vomiting Musculoskeletal: absent: Arthralgias, Back Pain Skin: absent: Rash, Pruritis Neurological: absent: Headache, Dizziness Psychiatric: Anxiety. absent: Depression, Suicidal Ideation Physical Exam Vital Signs Reviewed: Yes Vital Signs Temp Pulse Resp BP Pulse Ox 01/09/18 11:19 71 18 135/79 98 01/09/18 09:50 98.2 F 76 16 138/83 98 Temperature: Afebrile Blood Pressure: Normal Pulse: Regular Respiratory Rate: Normal Appearance: Positive for: Well-Appearing, Non-Toxic, Comfortable Pain Distress: None Mental Status: Positive for: Alert and Oriented X 3 - Systems Exam Head: Present: Atraumatic Mouth: Present: Moist Mucous Membranes Neck: Present: Normal Range of Motion Respiratory/Chest: Present: Clear to Auscultation, Good Air Exchange. No: Respiratory Distress, Accessory Muscle Use Cardiovascular: Present: Regular Rate and Rhythm, Normal S1, S2. No: Murmurs Abdomen: No: Tenderness, Distention, Peritoneal Signs, Rebound, Guarding Back: Present: Normal Inspection. No: Midline Tenderness, Paraspinal Tenderness Upper Extremity: Present: Normal ROM Lower Extremity: Present: Normal ROM Neurological: Present: GCS=15, Speech Normal Skin: Present: Warm, Dry, Normal Color. No: Rashes Psychiatric: Present: Alert, Oriented x 3 Medical Decision Making ED Course and Treatment: 01/09/18 13:43 Patient is nontoxic well-appearing in no distress vital signs are stable. CBC WNL CMP WNL Tylenol WNL Salicylate WNL Alcohol level WNL Urine drug screen PCP UA; + blood, + leukocytes, many bacteria cxr: wnl ekg normal sinus rhythm at 77 bpm normal axis normal intervals no ST elevations pt is medically cleared for PES evaluation Patient was seen and evaluated by PES screener: raul Patient was psychiatrically cleared for discharge pt reassessment; pt feeling better; states she is ready to go home; eating sandwich in ER. NO cp, no sob. no abdominal pain. no n/v/d. pt denies urinary symptoms. Ua: + for infection; will start patient on macrobid Po. Patient verbalizes understanding of discharge instructions and need for immediate followup. all aspects of this case were discussed the attending of record. Impression; PCP use, Urinary tract infection Followup with behavioral health macrobid; 1 tablet twice daily 10 days increase fluids follow up with the primary care physician within the next 2 days return immediately if symptoms worsen,persist or if new symptoms develop. Reassessment Condition: Re-examined (all symptoms have resolved. pt denies any complaints) - Lab Interpretations Lab Results: 01/09/18 09:05 01/09/18 09:05 Lab Results 01/09/18 09:05: Alcohol, Quantitative < 10 01/09/18 09:05: Salicylates < 1 L, Acetaminophen < 10.0 L 01/09/18 09:05: Urine Opiates Screen Negative, Urine Methadone Screen Negative, Ur Barbiturates Screen Negative, Ur Phencyclidine Scrn Positive H, Ur Amphetamines Screen Negative, U Benzodiazepines Scrn Negative, U Oth Cocaine Metabols Negative, U Cannabinoids Screen Negative 01/09/18 09:05: Sodium 142, Potassium 4.0, Chloride 109 H, Carbon Dioxide 24, Anion Gap 13, BUN 13, Creatinine 0.7, Est GFR ( Amer) > 60, Est GFR (Non- Af Amer) > 60, Random Glucose 86, Calcium 9.1, Total Bilirubin < 0.1 L, AST 14, ALT 17, Alkaline Phosphatase 66, Total Protein 7.2, Albumin 3.8, Globulin 3.4, Albumin/Globulin Ratio 1.1 01/09/18 09:05: Urine Color Yellow, Urine Appearance Turbid, Urine pH 6.0, Ur Specific [place] 1.025, Urine Protein Negative, Urine Glucose (UA) Negative, Urine Ketones Negative, Urine Blood Moderate H, Urine Nitrate Negative, Urine Bilirubin Negative, Urine Urobilinogen 0.2, Ur Leukocyte Esterase Trace H, Urine RBC 1 - 3, Urine WBC 0 - 2, Ur Epithelial Cells Many, Urine Bacteria Many 01/09/18 09:05: WBC 10.4, RBC 4.63, Hgb 13.7, Hct 41.9, MCV 90.5, MCH 29.6, MCHC 32.7, RDW 14.5, Plt Count 252, MPV 10.1, Gran % 73.0 H, Lymph % (Auto) 19.5 L, [place] % (Auto) 5.6, Eos % (Auto) 1.7, Baso % (Auto) 0.2, Gran # 7.58 H, Lymph # (Auto) 2.0, [place] # (Auto) 0.6, Eos # (Auto) 0.2, Baso # (Auto) 0.02 - RAD Interpretation Radiology Orders: 01/09/18 09:27 CHEST PORTABLE [RAD] Stat Disposition/Present on Arrival - Present on Arrival Any Indicators Present on Arrival: No History of DVT/PE: No History of Uncontrolled Diabetes: No Urinary Catheter: No History of Decub. Ulcer: No History Surgical Site Infection Following: None - Disposition Have Diagnosis and Disposition been Completed?: Yes Diagnosis: PCP abuse, Urinary tract infection Disposition: HOME/ ROUTINE Disposition Time: 13:47 Patient Plan: Discharge Patient Problems: Current Active Problems Problem Status Onset PCP abuse Acute Urinary tract infection Acute Condition: GOOD Discharge Instructions (ExitCare): Urinary Tract Infections in Adults, Drug Abuse and Drug Addiction (DC) Additional Instructions: Followup with behavioral health macrobid; 1 tablet twice daily 10 days increase fluids follow up with the primary care physician within the next 2 days return immediately if symptoms worsen,persist or if new symptoms develop. Prescriptions: Nitrofurantoin Macrocrystals [Macrobid] 100 mg PO BID #20 cap Referrals: Diana Florence MD [Staff Provider] - Follow up with primary Benjamin Fiore DO [Staff Provider] - [place] up [place] primary [facility] [place] - Follow up with primary Forms: [employer] (French), WORK NOTE
[2018-01-09 14:01] VITALS: BP 127/83; PULSE 81; TEMP 97.4; O2SAT 100
== END 2018-01-09 14:03 | disposition home or self-care (01) ==
LOC: ED 08:26
DX: N39.0 Urinary tract infection, site not specified (principal); F16.10 Hallucinogen abuse, uncomplicated; I10 Essential (primary) hypertension; F43.10 Post-traumatic stress disorder, unspecified; F17.210 Nicotine dependence, cigarettes, uncomplicated

== ENCOUNTER 2018-04-14 20:56 | Emergency (ER) | payer OTHER ==
[2018-04-14 20:57] VITALS: BMI 31.9
[2018-04-14 21:31] VITALS: RESP 18; O2SAT 100
--- NOTE | 2018-04-14 23:05 | ED PDOC ---
Arrival/HPI <ShaNathaniel woods - Last Filed: 04/15/18 01:01> - General Historian: Patient - History of Present Illness Time/Duration: < week Symptom Onset: Gradual Symptom Course: Unchanged Quality: Aching, Pressure, Burning Severity Level: 10 Activities at Onset: Rest, Light Context: Standing, Walking, Exertion <Porsche Stewart - Last Filed: 04/15/18 11:26> - General Chief Complaint: Back Pain Time Seen by Provider: 04/14/18 23:00 - History of Present Illness Narrative History of Present Illness (Text): 04/14/18 23:01 Pt is a 38 yr old female with PMH of fibromyalgia who presents to the ED with left sided flank pain and leg pain x 2 days. Pt states she has left burning low back pain without referral and rated 10/10 on the pain scale. States pain is worse on standing and movement and better with rest. Denies chest pain, sob, abdominal pain, change in bladder or bowel, fever, chills, change in sensation or any other complaints. (Porsche Stewart) Past Medical History - Provider Review Nursing Documentation Reviewed: Yes - Travel History Have you recently traveled outside [place] w/in the past 3 mons?: No - Past History Past History: No Previous - Infectious Disease Hx of Infectious Diseases: None - Cardiac Hx Cardiac Disorders: Yes Hx Hypertension: Yes - Pulmonary Hx Tuberculosis: No - Neurological HX Cerebrovascular Accident: No Hx Seizures: No - HEENT Hx HEENT Disorder: No - Renal Hx Renal Disorder: No - Endocrine/Metabolic Hx Endocrine Disorders: Yes Hx Diabetes Mellitus Type 1: Yes - Hematological/Oncological Hx Cancer: No - Integumentary Hx Dermatological Disorder: No - Musculoskeletal/Rheumatological Hx Musculoskeletal Disorders: Yes Hx Arthritis: Yes Hx Herniated Disk: Yes - Gastrointestinal Hx Gastrointestinal Disorders: No - Genitourinary/Gynecological Hx Sexually Transmitted Diseases: No - Psychiatric Hx Psychophysiologic Disorder: Yes Hx Anxiety: Yes Hx Depression: Yes Hx Post Traumatic Stress Disorder: Yes Hx Substance Use: Yes - Past Surgical History Past Surgical History: No Previous - Surgical History Hx Section: Yes - Anesthesia Hx Anesthesia: Yes Hx Anesthesia Reactions: No Hx Malignant Hyperthermia: No - Suicidal Assessment Feels Threatened In Home Enviroment: No <Porsche Stewart - Last Filed: 04/15/18 11:26> Family/Social History - Physician Review Nursing Documentation Reviewed: Yes Family/Social History: Unknown Family HX Smoking Status: Heavy Smoker > 10 Cigarettes Daily Hx Alcohol Use: No Hx Substance Use: Yes Substance used: PCP, marijuana Hx Substance Use Treatment: No <Porsche Stewart - Last Filed: 04/15/18 11:26> Allergies/Home Meds <Nathaniel Dalton - Last Filed: 04/15/18 01:01> <Porsche Stewart - Last Filed: 04/15/18 11:26> Allergies/Adverse Reactions: Allergies No Known Allergies Allergy (Verified 04/14/18 21:40) per patient Physical Exam Vital Signs Reviewed: Yes Temperature: Afebrile Blood Pressure: Normal Pulse: Regular Respiratory Rate: Normal Appearance: Positive for: Well-Appearing, Non-Toxic, Comfortable Pain Distress: Moderate Mental Status: Positive for: Alert and Oriented X 3 - Systems Exam Head: Present: Atraumatic, Normocephalic Pupils: Present: PERRL Extroacular Muscles: Present: EOMI Conjunctiva: Present: Injected Mouth: Present: Moist Mucous Membranes Neck: Present: Normal Range of Motion Respiratory/Chest: Present: Clear to Auscultation, Good Air Exchange. No: Respiratory Distress, Accessory Muscle Use Cardiovascular: Present: Regular Rate and Rhythm, Normal S1, S2. No: Murmurs Abdomen: No: Tenderness, Distention, Peritoneal Signs Back: Present: Normal Inspection Upper Extremity: Present: Normal Inspection. No: Cyanosis, Edema Lower Extremity: Present: Normal Inspection. No: Edema Neurological: Present: GCS=15, CN II-XII Intact, Speech Normal Skin: Present: Warm, Dry, Normal Color. No: Rashes Psychiatric: Present: Alert, Oriented x 3, Normal Insight, Normal Concentration <Porsche Stewart - Last Filed: 04/15/18 11:26> Vital Signs Temp Pulse Resp BP Pulse Ox 04/15/18 02:15 98.8 F 86 18 120/76 100 04/14/18 21:30 98.7 F 98 H 18 123/82 100 Medical Decision Making <Nathaniel Dalton - Last Filed: 04/15/18 01:01> <Porsche Stewart - Last Filed: 04/15/18 11:26> ED Course and Treatment: 04/14/18 23:02 Impression Pt is a 38 yr old female with PMH of fibromyalgia who presents to the ED with left sided flank pain and leg pain x 2 days On exam, point tenderness to thoracic and lumbar paraspinal mm, left SI jt pain , no abdominal pain on palpation Working Dx: UTI vs chronic pain syndrome Plan UA Labs assess and dispo Progress note UA and cbc wnl and negative CMP had to be re drawn; toradol 30mg IM pt resting comfortably 04/15/18 02:30 Pt positive for PCP dispo home with 3 days of tramadol and gabapentin for LBP f/u with PMD and 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 (Porsche Stewart) - Lab Interpretations Lab Results: 04/15/18 00:07 04/15/18 02:02 Lab Results 04/15/18 02:02: Alcohol, Quantitative < 10 04/15/18 02:02: Sodium 147, Potassium 3.9, Chloride 114 H, Carbon Dioxide 22, Anion Gap 15, BUN 13, Creatinine 0.6 L, Est GFR ( Amer) > 60, Est GFR ( Non-Af Amer) > 60, Random Glucose 88, Calcium 8.5, Total Bilirubin 0.3, AST 50 H D, ALT 40, Alkaline Phosphatase 53, Total Protein 6.7, Albumin 3.7, Globulin 3.1, Albumin/Globulin Ratio 1.2 04/15/18 01:30: Urine Opiates Screen Negative, Urine Methadone Screen Negative, Ur Barbiturates Screen Negative, Ur Phencyclidine Scrn Positive H, Ur Amphetamines Screen Negative, U Benzodiazepines Scrn Negative, U Oth Cocaine Metabols Negative, U Cannabinoids Screen Negative 04/15/18 00:07: WBC 8.9, RBC 4.12, Hgb 11.8 L, Hct 36.1, MCV 87.6, MCH 28.6, MCHC 32.7, RDW 14.5, Plt Count 199, MPV 9.7, Gran % 58.7, Lymph % (Auto) 32.4, [place] % (Auto) 6.2 H, Eos % (Auto) 2.3, Baso % (Auto) 0.4, Gran # 5.24, Lymph # ( Auto) 2.9, [place] # (Auto) 0.6, Eos # (Auto) 0.2, Baso # (Auto) 0.04 04/14/18 23:57: Urine Color Yellow, Urine Appearance Clear, Urine pH 6.0, Ur Specific [place] >= 1.030, Urine Protein Negative, Urine Glucose (UA) Negative, Urine Ketones Negative, Urine Blood Small H, Urine Nitrate Negative, Urine Bilirubin Negative, Urine Urobilinogen 0.2, Ur Leukocyte Esterase Negative, Urine RBC 1 - 3, Urine WBC 0 - 2, Ur Epithelial Cells 1 - 3, Urine Bacteria Few - Medication Orders Current Medication Orders: Discontinued Medications Ketorolac Tromethamine (Toradol) 30 mg IM STAT STA Stop: 04/15/18 01:06 Last Admin: 04/15/18 01:29 Dose: 30 mg MAR Pain Assessment Document 04/15/18 01:29 (Rec: 04/15/18 01:29 RG [id number]) Pain Reassessment Is this a pain reassessment? Yes Location Upper or Lower Lower Pain Location Body Site Back Description Description Constant IM Administration Charges Document 04/15/18 01:29 RG (Rec: 04/15/18 01:29 RG [id number]) Charges for Administration # of IM Administrations 1 Re-Assess: [facility] Pain Assessment Document 04/15/18 02:29 RG (Rec: 04/15/18 03:59 RG [id number]) Pain Reassessment Is this a pain reassessment? Yes Sleep Is patient sleeping during reassessment? No Presence of Pain Presence of Pain No Location Pain Location Body Site Generalized Description Intensity of Pain at present 1 - PA / DATA CONVERSION DEVELOPER / Resident Statement MD/DO has reviewed & agrees with the documentation as recorded. <Nathaniel Dalton - Last Filed: 04/15/18 01:01> Disposition/Present on Arrival <Nathaniel Dalton - Last Filed: 04/15/18 01:01> - Present on Arrival Any Indicators Present on Arrival: Yes History of DVT/PE: No History of Uncontrolled Diabetes: No Urinary Catheter: No History of Decub. Ulcer: No History Surgical Site Infection Following: None - Disposition Have Diagnosis and Disposition been Completed?: Yes Disposition Time: 02:04 Patient Plan: Discharge <Porsche Stewart - Last Filed: 04/15/18 11:26> - Disposition Diagnosis: Chronic pain syndrome, Fibromyalgia muscle pain, Sacroiliac joint dysfunction of left side, Low back pain, PCP (phencyclidine) abuse Disposition: HOME/ ROUTINE Condition: STABLE Discharge Instructions (ExitCare): Chronic Pain Additional Instructions: ANNABELLE AMOR, thank you for letting us take care of you today. Your provider was Nathaniel Dalton MD and SALVADOR Stewart and you were treated for CHRONIC BACK PAIN. The emergency medical care you received today was directed at your acute symptoms. If you were prescribed any medication, please fill it and take as directed. It may take several days for your symptoms to resolve. Return to the Emergency Department if your symptoms worsen, do not improve, or if you have any other problems. PLEASE FOLLOW UP WITH YOUR PRIMARY CARE DOCTOR IN 2 DAYS Please contact your doctor or call one of the physicians/clinics you have been referred to that are listed on the Patient Visit Information form that is included in your discharge packet. Bring any paperwork you were given at discharge with you along with any medications you are taking to your follow up visit. Our treatment cannot replace ongoing medical care by a primary care provider outside of the emergency department. Thank you for allowing the [facility] team to be part of your care today. If you had an X-Ray or CT scan: A Radiologist will review the ED reading if any change in treatment is needed we will contact you. If you had a blood, urine, or wound culture: It will take several days for the results, if any change in treatment is needed we will contact you. If you had an STI test: It will take 48 hours for the results. Please call after 1 week if you have not heard back. Prescriptions: Gabapentin [Neurontin] 300 mg PO TID 5 Days #15 cap traMADol [Ultram] 50 mg PO BID 3 Days #6 tab Referrals: Jose Lees [Primary Care Provider] - Follow up with primary Glynn Grigsby MD [Staff Provider] - Follow up with primary Forms: [employer] ([place]), WORK NOTE
[2018-04-15 00:08] LABS: URINE APPEARANCE CLEAR (CLEAR); URINE BILIRUBIN NEGATIVE (NEGATIVE); URINE BLOOD SMALL (NEGATIVE); URINE COLOR YELLOW (YELLOW); URINE GLUCOSE (UA) NEGATIVE (NEGATIVE); URINE LEUKOCYTE ESTERASE NEGATIVE Leu/uL (NEGATIVE); URINE PROTEIN NEGATIVE mg/dL (<30 mg/dL); URINE UROBILINOGEN 0.2 E.U./dL (<1 E.U./dL)
[2018-04-15 00:22] LABS: BASO # 0.04 K/mm3 (0.0-2.0); BASO % 0.4 % (0.0-3.0); EOS # 0.2 (0.0-0.7); EOS % 2.3 % (1.5-5.0); GRAN # 5.24 (1.4-6.5); GRAN % 58.7 % (50.0-68.0); HEMOGLOBIN 11.8 g/dL (12.0-16.0); LYMPH # 2.9 (1.2-3.4); LYMPH % 32.4 % (22.0-35.0); MEAN CELL VOLUME 87.6 fl (80.0-105.0); MEAN CORPUSCULAR HEMOGLOBIN 28.6 pg (25.0-35.0); MEAN CORPUSCULAR HGB CONC 32.7 g/dl (31.0-37.0); MEAN PLATELET VOLUME 9.7 fl (7.0-11.0); MONO # 0.6 (0.1-0.6); MONO % 6.2 % (1.0-6.0); RBC 4.12 10^6/uL (3.5-6.1); RED CELL DISTRIBUTION WIDTH 14.5 % (11.5-14.5); WHITE BLOOD COUNT 8.9 10^3/ul (4.5-11.0)
[2018-04-15 00:23] LABS: URINE BACTERIA FEW (NEG); URINE WBC 0 - 2 /hpf (0-6)
[2018-04-15 02:15] LABS: BARBITURATES, UR NEGATIVE (NEGATIVE); BENZODIAZEPINES, UR NEGATIVE (NEGATIVE); OPIATES, UR NEGATIVE (NEGATIVE); PHENCYCLIDINE, UR POSITIVE (NEGATIVE)
[2018-04-15 02:21] LABS: ALB/GLOB RATIO 1.2 (1.1-1.8); ALBUMIN 3.7 g/dL (3.0-4.8); ALT/SGPT 40 U/L (7-56); AST/SGOT 50 U/L (14-36); BLOOD UREA NITROGEN 13 mg/dL (7-21); CALCIUM 8.5 mg/dL (8.4-10.5); GFR AFRICAN-AMERICAN > 60; GFR NON-AFRICAN AMERICAN > 60
[2018-04-15 04:07] VITALS: BP 120/76; PULSE 86; TEMP 98.8
== END 2018-04-15 02:40 | disposition home or self-care (01) ==
LOC: ED 20:56
DX: M79.7 Fibromyalgia (principal); M53.3 Sacrococcygeal disorders, not elsewhere classified; M54.5 Low back pain; G89.4 Chronic pain syndrome; F16.10 Hallucinogen abuse, uncomplicated
CPT/HCPCS: 80053; 80320; 80324; 80345; 80346; 80349; 80353; 80358; 80361; 81001; 83992; 85025; 96372; 99283; J1885

== ENCOUNTER 2018-06-18 08:12 | Emergency (ER) | payer BC, MEDICAID, OTHER ==
[2018-06-18 08:12] VITALS: BMI 31.9
--- NOTE | 2018-06-18 08:22 | ED PDOC ---
Arrival/HPI - General Chief Complaint: Substance Abuse Time Seen by Provider: 06/18/18 08:18 Historian: Patient, EMS, Police - History of Present Illness Narrative History of Present Illness (Text): 06/18/18 08:24 38 year old female, with past medical history of anxiety, pancreatic cyst, PTSD , and substance use, presents to the Emergency department accompanied by [employer] via EMS s/p reportedly Ambien overdose this morning. As per [employer], patient was found by a jogger sitting on the park bench, possibly since 11 pm last night, with an empty bottle of Ambien and subsequently called EMS for evaluation. Upon EMS arrival, patient appeared drowsy with limited response, expressing suicidal attempt. EMS states patient admitted to taking half a bottle of Ambien, reportedly 10 pills, and stated she does not want to wake up. Patient was also found with a bottle of Motrin and an empty bottle of Macrobid, although patient denies taking either. However, patient expressed that those medications were "her next step". Upon arrival to the Emergency department, patient has limited response. Patient denies any trauma or self-injury. Patient denies any chest pain or shortness of breath. Patient admits to smoking regularly and states she used PCP yesterday. ROS limited secondary to patient's poor response. Time/Duration: Prior to Arrival Symptom Onset: Gradual Symptom Course: Unchanged Activities at Onset: Light Context: Other (Park) Past Medical History - Provider Review Nursing Documentation Reviewed: Yes - Past History Past History: No Previous - Infectious Disease Hx of Infectious Diseases: None - Reproductive Menopause: Yes - Cardiac Hx Hypertension: Yes - Pulmonary Hx Asthma: Yes Hx Chronic Obstructive Pulmonary Disease (COPD): Yes - Neurological Hx Seizures: No - HEENT Hx HEENT Disorder: No - Renal Hx Renal Disorder: No - Endocrine/Metabolic Hx Endocrine Disorders: Yes Hx Diabetes Mellitus Type 1: Yes - Hematological/Oncological Hx Cancer: No - Integumentary Hx Dermatological Disorder: No - Musculoskeletal/Rheumatological Hx Arthritis: Yes - Gastrointestinal Hx Gastrointestinal Disorders: No - Genitourinary/Gynecological Hx Sexually Transmitted Diseases: No - Psychiatric Hx Anxiety: Yes Hx Depression: Yes Hx Post Traumatic Stress Disorder: Yes Hx Substance Use: Yes - Past Surgical History Past Surgical History: No Previous - Surgical History Hx Section: Yes - Anesthesia Hx Anesthesia: Yes Hx Anesthesia Reactions: No Hx Malignant Hyperthermia: No - Suicidal Assessment Feels Threatened In Home Enviroment: No Family/Social History - Physician Review Nursing Documentation Reviewed: Yes Family/Social History: No Known Family HX Smoking Status: Heavy Smoker > 10 Cigarettes Daily Hx Alcohol Use: No Hx Substance Use: Yes Substance used: PCP, marijuana Hx Substance Use Treatment: No Allergies/Home Meds Allergies/Adverse Reactions: Allergies No Known Allergies Allergy (Verified 05/13/18 12:32) per patient Review of Systems - Review of Systems Systems not reviewed;Unavailable: Other (Poor historian, limited response) Respiratory: absent: SOB Cardiovascular: absent: Chest Pain Psychiatric: Suicidal Ideation Physical Exam Vital Signs Reviewed: Yes Vital Signs Temp Pulse Resp BP Pulse Ox 06/18/18 10:20 89 18 129/62 99 06/18/18 08:25 98.9 F 87 19 128/69 100 Temperature: Afebrile Blood Pressure: Normal Pulse: Regular Respiratory Rate: Normal Appearance: Positive for: Well-Appearing, Non-Toxic, Comfortable Pain Distress: None Mental Status: Positive for: other (drowsy) - Systems Exam Head: Present: Atraumatic, Normocephalic Pupils: Present: PERRL (3mm in diameter) Extroacular Muscles: Present: EOMI Conjunctiva: Present: Normal Mouth: Present: Moist Mucous Membranes Neck: Present: Normal Range of Motion Respiratory/Chest: Present: Clear to Auscultation, Good Air Exchange. No: Respiratory Distress, Accessory Muscle Use Cardiovascular: Present: Regular Rate and Rhythm, Normal S1, S2. No: Murmurs Abdomen: No: Tenderness, Distention, Peritoneal Signs Back: Present: Normal Inspection Upper Extremity: Present: Normal Inspection. No: Cyanosis, Edema Lower Extremity: Present: Normal Inspection. No: Edema Neurological: Present: GCS=15, CN II-XII Intact, Motor Func Grossly Intact Skin: Present: Warm, Dry, Normal Color. No: Rashes Psychiatric: Present: Alert, Other (Drowsy) Medical Decision Making ED Course and Treatment: 06/18/18 08:21 Impression: 38 year old female presents to the Emergency department s/p Ambien overdose. Differential Diagnosis included but are not limited to: Ambien overdose, suicidal attempt Plan: -- VBG -- CT of head -- EKG -- Labs -- Chest X-ray -- IV fluids -- Urinalysis -- Reassess and disposition Prior Visits: Notes and results from previous visits were reviewed. Progress Notes: 06/18/18 08:21 EKG: Ordered, reviewed, and independently interpreted the EKG. Rate : 89 BPM Rhythm : NSR Interpretation : No ST-segment elevations or depressions, no T-wave inversions, normal intervals. 06/18/18 09:24 I discussed the case with Asael, from Poison Control, who recommends supportive care. Patient is sleeping and arousable to voice stimuli. 06/18/18 09:39 Chest X-ray reviewed by radiologist, shows no active disease. 06/18/18 10:00 CT of head reviewed by radiologist, shows no acute findings. 06/18/18 10:28 Patient is now alert awake and oriented x 3. No slurred speech. She states that she only took one ambien and was not trying to harm herself. She also admits taking PCP 2 days ago. Denies any other drugs. No SI or HI. Patient is medically cleared for psych evaluation. 06/18/18 14:59 Patient is complaining of epigastric abdominal pain. Abd soft and not tender. Not distended. Lipase added and normal. Treated with Pepcid and Tylenol. Pain resolved. 06/18/18 18:06 PES called [facility] INFORMATION SECURITY OFFICER (dyfs) because the patient has a child that needs attention. They came to interview the patient. Currently [facility] is here to evaluate patient. 06/18/18 18:[address] Dalton to f/u [facility] screening evaluation/Psych. - Critical Care Critical Care Minutes: 30 minutes - Lab Interpretations Lab Results: 06/18/18 08:45 06/18/18 08:45 Lab Results 06/18/18 14:55: pO2 44, VBG pH 7.31 L, VBG pCO2 57.0, VBG HCO3 28.7 H, VBG Total CO2 30.4 H, VBG O2 Sat (Calc) 81.0 H, VBG Base Excess 1.2, VBG Potassium 3.8, Sodium 142.0, Chloride 110.0 H, Glucose 96, Lactate 0.8, FiO2 21.0, Venous Blood Potassium 3.8 06/18/18 09:00: Urine Opiates Screen Negative, Urine Methadone Screen Negative, Ur Barbiturates Screen Negative, Ur Phencyclidine Scrn Positive H, Ur Amphetamines Screen Negative, U Benzodiazepines Scrn Negative, U Oth Cocaine Metabols Negative, U Cannabinoids Screen Negative 06/18/18 09:00: Urine Color Yellow, Urine Appearance Clear, Urine pH 6.0, Ur Specific [place] >= 1.030, Urine Protein Trace H, Urine Glucose (UA) Negative, Urine Ketones Trace H, Urine Blood Trace-intact H, Urine Nitrate Negative, Urine Bilirubin Negative, Urine Urobilinogen 0.2, Ur Leukocyte Esterase Trace H , Urine RBC 1 - 3, Urine WBC 2 - 5, Ur Epithelial Cells 6 - 8, Urine Bacteria Many 06/18/18 08:45: Lipase 56 06/18/18 08:45: pO2 70 H, VBG pH 7.26 L, VBG pCO2 52.0, VBG HCO3 23.3, VBG Total CO2 24.9, VBG O2 Sat (Calc) 95.3 H, VBG Base Excess -4.3 L, VBG Potassium 4.2, Sodium 139.0, Chloride 107.0, Glucose 105, Lactate 2.6 H, FiO2 21.0, Venous Blood Potassium 4.2 06/18/18 08:45: PT 11.9, INR 1.03, APTT 29.1 06/18/18 08:45: Alcohol, Quantitative < 10 06/18/18 08:45: Salicylates < 1 L, Acetaminophen < 10.0 L 06/18/18 08:45: Sodium 141, Chloride 109 H, Potassium 4.6, Carbon Dioxide 22, Anion Gap 15, BUN 15, Creatinine 0.6 L, Est GFR ( Amer) > 60, Est GFR ( Non-Af Amer) > 60, Random Glucose 110, Calcium 9.2, Magnesium 2.4 H, Total Bilirubin 0.2, AST 18, ALT 22, Alkaline Phosphatase 66, Total Creatine Kinase 107, Total Protein 8.0, Albumin 4.3, Globulin 3.7, Albumin/Globulin Ratio 1.2 06/18/18 08:45: WBC 10.4, RBC 4.43, Hgb 12.7, Hct 39.9, MCV 90.1, MCH 28.7, MCHC 31.8, RDW 15.2 H, Plt Count 211, MPV 9.3, Gran % 74.7 H, Lymph % (Auto) 18.2 L, [place] % (Auto) 6.1 H, Eos % (Auto) 0.8 L, Baso % (Auto) 0.2, Gran # 7.74 H, Lymph # (Auto) 1.9, [place] # (Auto) 0.6, Eos # (Auto) 0.1, Baso # (Auto) 0.02 - RAD Interpretation Radiology Orders: 06/18/18 08:21 CHEST PORTABLE [RAD] Stat 06/18/18 08:23 HEAD W/O CONTRAST [CT] Stat Bag Checker: Radiologist - EKG Interpretation Interpreted by ED Physician: Yes Type: 12 lead EKG - Medication Orders Current Medication Orders: Sodium Chloride (Sodium Chloride 0.9%) 1,000 mls @ 100 mls/hr IV .Q10H LARISA Last Admin: 06/18/18 09:02 Dose: 100 mls/hr eMAR Start Stop Document 06/18/18 09:02 EWO (Rec: 06/18/18 09:03 EWO [id number]) Intravenous Solution Start Date 06/18/18 Start Time 09:03 Discontinued Medications Acetaminophen (Tylenol 325mg Tab) 650 mg PO STAT STA Stop: 06/18/18 15:25 Last Admin: 06/18/18 15:37 Dose: 650 mg MAR Pain/Vitals Document 06/18/18 15:37 EQ (Rec: 06/18/18 15:37 EQ [id number]) Pain Reassessment Is This A Pain ReAssessment? No Sleep Is patient sleeping during reassessment? No Presence of Pain Presence of Pain Yes Famotidine (Pepcid) 20 mg PO STAT STA Stop: 06/18/18 15:00 Last Admin: 06/18/18 15:37 Dose: 20 mg Ibuprofen (Motrin Tab) 600 mg PO STAT STA Stop: 06/18/18 15:00 Last Admin: 06/18/18 15:37 Dose: Not Given Non-Admin Reason: Patient Refused - Scribe Statement The provider has reviewed the documentation as recorded by the Mathieu Perry. All medical record entries made by the Gabyibsourav were at my direction and personally dictated by me. I have reviewed the chart and agree that the record accurately reflects my personal performance of the history, physical exam, medical decision making, and the department course for this patient. I have also personally directed, reviewed, and agree with the discharge instructions and disposition. Disposition/Present on Arrival - Present on Arrival Any Indicators Present on Arrival: No History of DVT/PE: No History of Uncontrolled Diabetes: No Urinary Catheter: No History of Decub. Ulcer: No History Surgical Site Infection Following: None - Disposition Have Diagnosis and Disposition been Completed?: No Diagnosis: Overdose, Suicidal ideation Disposition Time: 18:46 Condition: GOOD Forms: [employer] ([place])
[2018-06-18] MEDS ORDERED: Sodium Chloride 0.9% 1,000 ML IV SCH (08:30)
[2018-06-18 08:58] LABS: BASO # 0.02 K/mm3 (0.0-2.0); BASO % 0.2 % (0.0-3.0); EOS # 0.1 (0.0-0.7); EOS % 0.8 % (1.5-5.0); GRAN # 7.74 (1.4-6.5); GRAN % 74.7 % (50.0-68.0); HEMOGLOBIN 12.7 g/dL (12.0-16.0); LYMPH # 1.9 (1.2-3.4); LYMPH % 18.2 % (22.0-35.0); MEAN CELL VOLUME 90.1 fl (80.0-105.0); MEAN CORPUSCULAR HEMOGLOBIN 28.7 pg (25.0-35.0); MEAN CORPUSCULAR HGB CONC 31.8 g/dl (31.0-37.0); MEAN PLATELET VOLUME 9.3 fl (7.0-11.0); MONO # 0.6 (0.1-0.6); MONO % 6.1 % (1.0-6.0); RBC 4.43 10^6/uL (3.5-6.1); RED CELL DISTRIBUTION WIDTH 15.2 % (11.5-14.5); WHITE BLOOD COUNT 10.4 10^3/ul (4.5-11.0)
[2018-06-18 08:59] LABS: VENOUS BLOOD GAS BASE EXCESS -4.3 mmol/L (0.0-2.0); VENOUS BLOOD GAS PO2 70 mm/Hg (30-55); VENOUS BLOOD PH 7.26 (7.32-7.43)
[2018-06-18 09:06] LABS: INR 1.03; PARTIAL THROMBOPLASTIN TIME 29.1 Seconds (25.1-36.5); PROTHROMBIN TIME 11.9 SECONDS (9.4-12.5)
[2018-06-18 09:08] LABS: ALB/GLOB RATIO 1.2 (1.1-1.8); ALBUMIN 4.3 g/dL (3.0-4.8); ALT/SGPT 22 U/L (7-56); AST/SGOT 18 U/L (14-36); BLOOD UREA NITROGEN 15 mg/dL (7-21); CALCIUM 9.2 mg/dL (8.4-10.5); GFR NON-AFRICAN AMERICAN > 60
[2018-06-18 09:21] LABS: URINE BILIRUBIN NEGATIVE (NEGATIVE); URINE BLOOD TRACE-INTACT (NEGATIVE); URINE GLUCOSE (UA) NEGATIVE (NEGATIVE); URINE LEUKOCYTE ESTERASE TRACE Leu/uL (NEGATIVE); URINE PROTEIN TRACE mg/dL (<30 mg/dL); URINE UROBILINOGEN 0.2 E.U./dL (<1 E.U./dL)
[2018-06-18 09:23] LABS: ACETAMINOPHEN < 10.0 ug/ml (10.0-20.0); SALICYLATE < 1 mg/dL (2.0-20.0)
[2018-06-18 09:30] LABS: BARBITURATES, UR NEGATIVE (NEGATIVE); BENZODIAZEPINES, UR NEGATIVE (NEGATIVE); OPIATES, UR NEGATIVE (NEGATIVE); PHENCYCLIDINE, UR POSITIVE (NEGATIVE)
--- NOTE | 2018-06-18 09:37 | RAD ---
Date of service: 06/18/2018 HISTORY: overdose COMPARISON: 01/09/2018 FINDINGS: LUNGS: No active pulmonary disease. PLEURA: No significant pleural effusion identified, no pneumothorax apparent. CARDIOVASCULAR: Normal. OSSEOUS STRUCTURES: No significant abnormalities. VISUALIZED UPPER ABDOMEN: Normal. OTHER FINDINGS: None. IMPRESSION: No active disease.
[2018-06-18 09:43] LABS: URINE APPEARANCE CLEAR (CLEAR); URINE COLOR YELLOW (YELLOW)
[2018-06-18 09:46] LABS: URINE BACTERIA MANY (NEG)
--- NOTE | 2018-06-18 09:50 | CT ---
Date of service: 06/18/2018 PROCEDURE: CT HEAD WITHOUT CONTRAST. HISTORY: ams/overdose COMPARISON: None available. TECHNIQUE: Axial computed tomography images were obtained through the head/brain without intravenous contrast. Radiation dose: Total exam DLP = 813 mGy-cm. This CT exam was performed using one or more of the following dose reduction techniques: Automated exposure control, adjustment of the mA and/or kV according to patient size, and/or use of iterative reconstruction technique. FINDINGS: HEMORRHAGE: No intracranial hemorrhage. BRAIN: No mass effect or edema. No atrophy or chronic microvascular ischemic changes. VENTRICLES: Unremarkable. No hydrocephalus. CALVARIUM: Unremarkable. PARANASAL SINUSES: Unremarkable as visualized. No significant inflammatory changes. MASTOID AIR CELLS: Unremarkable as visualized. No inflammatory changes. OTHER FINDINGS: None. IMPRESSION: No acute finding
--- NOTE | 2018-06-18 13:49 | CARD ---
APPROVED REPORT Date of service: 06/18/2018 EKG Measurement Heart [id number] <Conclusion> Normal sinus rhythm Normal ECG
[2018-06-18 15:04] LABS: VENOUS BLOOD GAS BASE EXCESS 1.2 mmol/L (0.0-2.0); VENOUS BLOOD GAS PO2 44 mm/Hg (30-55); VENOUS BLOOD PH 7.31 (7.32-7.43)
--- NOTE | 2018-06-18 19:07 | ED PDOC ---
Physical Exam Vital Signs Reviewed: Yes Vital Signs Temp Pulse Resp BP Pulse Ox 06/19/18 06:45 80 17 112/66 100 06/19/18 02:14 97.9 F 71 17 125/84 99 06/19/18 00:15 72 17 118/69 99 06/18/18 18:00 81 18 126/79 100 06/18/18 14:00 88 18 138/72 100 06/18/18 10:20 89 18 129/62 99 06/18/18 08:25 98.9 F 87 19 128/69 100 Temperature: Afebrile Blood Pressure: Normal Pulse: Regular Respiratory Rate: Normal Appearance: Positive for: Well-Appearing, Non-Toxic, Comfortable Pain Distress: None Mental Status: Positive for: Alert and Oriented X 3 Medical Decision Making ED Course and Treatment: 06/18/18 19:06 Patient endorsed to me by Dr. Hernandez. Patient is a 38 year old female presenting to the emergency department for ambien overdose.Patient has been in the ED for an extended period was medically cleared earlier .Currently awake alert with no complaints.Pending [facility] [place]. 06/19/18 06:50 Patient resting comfortably all evening and early am hrs./ still awaiting bed availability at [facility]. 06/19/18 07:00 Case endorsed to /pending [facility] [place] availability - Lab Interpretations Lab Results: 06/18/18 08:45 06/18/18 08:45 Lab Results 06/18/18 14:55: pO2 44, VBG pH 7.31 L, VBG pCO2 57.0, VBG HCO3 28.7 H, VBG Total CO2 30.4 H, VBG O2 Sat (Calc) 81.0 H, VBG Base Excess 1.2, VBG Potassium 3.8, Sodium 142.0, Chloride 110.0 H, Glucose 96, Lactate 0.8, FiO2 21.0, Venous Blood Potassium 3.8 06/18/18 09:00: Urine Opiates Screen Negative, Urine Methadone Screen Negative, Ur Barbiturates Screen Negative, Ur Phencyclidine Scrn Positive H, Ur Amphetamines Screen Negative, U Benzodiazepines Scrn Negative, U Oth Cocaine Metabols Negative, U Cannabinoids Screen Negative 06/18/18 09:00: Urine Color Yellow, Urine Appearance Clear, Urine pH 6.0, Ur Specific [place] >= 1.030, Urine Protein Trace H, Urine Glucose (UA) Negative, Urine Ketones Trace H, Urine Blood Trace-intact H, Urine Nitrate Negative, Urine Bilirubin Negative, Urine Urobilinogen 0.2, Ur Leukocyte Esterase Trace H , Urine RBC 1 - 3, Urine WBC 2 - 5, Ur Epithelial Cells 6 - 8, Urine Bacteria Many 06/18/18 08:45: Lipase 56 06/18/18 08:45: pO2 70 H, VBG pH 7.26 L, VBG pCO2 52.0, VBG HCO3 23.3, VBG Total CO2 24.9, VBG O2 Sat (Calc) 95.3 H, VBG Base Excess -4.3 L, VBG Potassium 4.2, Sodium 139.0, Chloride 107.0, Glucose 105, Lactate 2.6 H, FiO2 21.0, Venous Blood Potassium 4.2 06/18/18 08:45: PT 11.9, INR 1.03, APTT 29.1 06/18/18 08:45: Alcohol, Quantitative < 10 06/18/18 08:45: Salicylates < 1 L, Acetaminophen < 10.0 L 06/18/18 08:45: Sodium 141, Chloride 109 H, Potassium 4.6, Carbon Dioxide 22, Anion Gap 15, BUN 15, Creatinine 0.6 L, Est GFR ( Amer) > 60, Est GFR ( Non-Af Amer) > 60, Random Glucose 110, Calcium 9.2, Magnesium 2.4 H, Total Bilirubin 0.2, AST 18, ALT 22, Alkaline Phosphatase 66, Total Creatine Kinase 107, Total Protein 8.0, Albumin 4.3, Globulin 3.7, Albumin/Globulin Ratio 1.2 06/18/18 08:45: WBC 10.4, RBC 4.43, Hgb 12.7, Hct 39.9, MCV 90.1, MCH 28.7, MCHC 31.8, RDW 15.2 H, Plt Count 211, MPV 9.3, Gran % 74.7 H, Lymph % (Auto) 18.2 L, [place] % (Auto) 6.1 H, Eos % (Auto) 0.8 L, Baso % (Auto) 0.2, Gran # 7.74 H, Lymph # (Auto) 1.9, [place] # (Auto) 0.6, Eos # (Auto) 0.1, Baso # (Auto) 0.02 - RAD Interpretation Radiology Orders: 06/18/18 08:21 CHEST PORTABLE [RAD] Stat 06/18/18 08:23 HEAD W/O CONTRAST [CT] Stat - Medication Orders Current Medication Orders: Sodium Chloride (Sodium Chloride 0.9%) 1,000 mls @ 100 mls/hr IV .Q10H LARISA Last Admin: 06/18/18 09:02 Dose: 100 mls/hr eMAR Start Stop Document 06/18/18 09:02 EWO (Rec: 06/18/18 09:03 EWO [id number]) Intravenous Solution Start Date 06/18/18 Start Time 09:03 Discontinued Medications Acetaminophen (Tylenol 325mg Tab) 650 mg PO STAT STA Stop: 06/18/18 15:25 Last Admin: 06/18/18 15:37 Dose: 650 mg MAR Pain/Vitals Document 06/18/18 15:37 EQ (Rec: 06/18/18 15:37 EQ [id number]) Pain Reassessment Is This A Pain ReAssessment? No Sleep Is patient sleeping during reassessment? No Presence of Pain Presence of Pain Yes Albuterol/Ipratropium (Duoneb 3 Mg/0.5 Mg (3 Ml) Ud) 3 ml IH ONCE STA Stop: 06/18/18 19:58 Last Admin: 06/18/18 20:14 Dose: 3 ml Famotidine (Pepcid) 20 mg PO STAT STA Stop: 06/18/18 15:00 Last Admin: 06/18/18 15:37 Dose: 20 mg Ibuprofen (Motrin Tab) 600 mg PO STAT STA Stop: 06/18/18 15:00 Last Admin: 06/18/18 15:37 Dose: Not Given Non-Admin Reason: Patient Refused Disposition/Present on Arrival - Present on Arrival Any Indicators Present on Arrival: No History of DVT/PE: No History of Uncontrolled Diabetes: No Urinary Catheter: No - Disposition Have Diagnosis and Disposition been Completed?: No Diagnosis: Overdose, Suicidal ideation Disposition Time: 07:00 Patient Problems: Current Active Problems Problem Status Onset Overdose Acute Suicidal ideation Acute Condition: GOOD Forms: [employer] ([place])
[2018-06-18] MEDS ORDERED: Albuterol-Ipratrop 3 mg / 0.5 (3 ml) UD IH STA (19:57)
--- NOTE | 2018-06-19 07:23 | ED PDOC ---
Physical Exam Vital Signs Temp Pulse Resp BP Pulse Ox 06/19/18 07:33 97.9 F 77 18 133/81 98 06/19/18 06:45 80 17 112/66 100 06/19/18 02:14 97.9 F 71 17 125/84 99 06/19/18 00:15 72 17 118/69 99 06/18/18 18:00 81 18 126/79 100 06/18/18 14:00 88 18 138/72 100 06/18/18 10:20 89 18 129/62 99 06/18/18 08:25 98.9 F 87 19 128/69 100 Medical Decision Making ED Course and Treatment: 06/19/18 07:00 Patient endorsed to me by Dr. Dalton. Patient currently awaiting bed availability at [facility]. 06/19/18 08:07 patient reports she has abdominal pain to the nurse, similiar to what she experienced before. chart reviewed and workup lipase was normal. will give a dose of tylenol for now. 06/19/18 18:40 admit and transfer accepted to [facility] for invol admission for SI - Lab Interpretations Lab Results: 06/18/18 08:45 06/18/18 08:45 Lab Results 06/18/18 14:55: pO2 44, VBG pH 7.31 L, VBG pCO2 57.0, VBG HCO3 28.7 H, VBG Total CO2 30.4 H, VBG O2 Sat (Calc) 81.0 H, VBG Base Excess 1.2, VBG Potassium 3.8, Sodium 142.0, Chloride 110.0 H, Glucose 96, Lactate 0.8, FiO2 21.0, Venous Blood Potassium 3.8 06/18/18 09:00: Urine Opiates Screen Negative, Urine Methadone Screen Negative, Ur Barbiturates Screen Negative, Ur Phencyclidine Scrn Positive H, Ur Amphetamines Screen Negative, U Benzodiazepines Scrn Negative, U Oth Cocaine Metabols Negative, U Cannabinoids Screen Negative 06/18/18 09:00: Urine Color Yellow, Urine Appearance Clear, Urine pH 6.0, Ur Specific [employer] >= 1.030, Urine Protein Trace H, Urine Glucose (UA) Negative, Urine Ketones Trace H, Urine Blood Trace-intact H, Urine Nitrate Negative, Urine Bilirubin Negative, Urine Urobilinogen 0.2, Ur Leukocyte Esterase Trace H , Urine RBC 1 - 3, Urine WBC 2 - 5, Ur Epithelial Cells 6 - 8, Urine Bacteria Many 06/18/18 08:45: Lipase 56 06/18/18 08:45: pO2 70 H, VBG pH 7.26 L, VBG pCO2 52.0, VBG HCO3 23.3, VBG Total CO2 24.9, VBG O2 Sat (Calc) 95.3 H, VBG Base Excess -4.3 L, VBG Potassium 4.2, Sodium 139.0, Chloride 107.0, Glucose 105, Lactate 2.6 H, FiO2 21.0, Venous Blood Potassium 4.2 06/18/18 08:45: PT 11.9, INR 1.03, APTT 29.1 06/18/18 08:45: Alcohol, Quantitative < 10 06/18/18 08:45: Salicylates < 1 L, Acetaminophen < 10.0 L 06/18/18 08:45: Sodium 141, Chloride 109 H, Potassium 4.6, Carbon Dioxide 22, Anion Gap 15, BUN 15, Creatinine 0.6 L, Est GFR ( Amer) > 60, Est GFR ( Non-Af Amer) > 60, Random Glucose 110, Calcium 9.2, Magnesium 2.4 H, Total Bilirubin 0.2, AST 18, ALT 22, Alkaline Phosphatase 66, Total Creatine Kinase 107, Total Protein 8.0, Albumin 4.3, Globulin 3.7, Albumin/Globulin Ratio 1.2 06/18/18 08:45: WBC 10.4, RBC 4.43, Hgb 12.7, Hct 39.9, MCV 90.1, MCH 28.7, MCHC 31.8, RDW 15.2 H, Plt Count 211, MPV 9.3, Gran % 74.7 H, Lymph % (Auto) 18.2 L, [place] % (Auto) 6.1 H, Eos % (Auto) 0.8 L, Baso % (Auto) 0.2, Gran # 7.74 H, Lymph # (Auto) 1.9, [place] # (Auto) 0.6, Eos # (Auto) 0.1, Baso # (Auto) 0.02 - RAD Interpretation Radiology Orders: 06/18/18 08:21 CHEST PORTABLE [RAD] Stat 06/18/18 08:23 HEAD W/O CONTRAST [CT] Stat - Medication Orders Current Medication Orders: Acetaminophen (Tylenol 325mg Tab) 975 mg PO STAT STA Stop: 06/19/18 08:07 Sodium Chloride (Sodium Chloride 0.9%) 1,000 mls @ 100 mls/hr IV .Q10H LARISA Last Admin: 06/18/18 09:02 Dose: 100 mls/hr eMAR Start Stop Document 06/18/18 09:02 EWO (Rec: 06/18/18 09:03 EWO [id number]) Intravenous Solution Start Date 06/18/18 Start Time 09:03 Discontinued Medications Acetaminophen (Tylenol 325mg Tab) 650 mg PO STAT STA Stop: 06/18/18 15:25 Last Admin: 06/18/18 15:37 Dose: 650 mg MAR Pain/Vitals Document 06/18/18 15:37 EQ (Rec: 06/18/18 15:37 EQ [id number]) Pain Reassessment Is This A Pain ReAssessment? No Sleep Is patient sleeping during reassessment? No Presence of Pain Presence of Pain Yes Albuterol/Ipratropium (Duoneb 3 Mg/0.5 Mg (3 Ml) Ud) 3 ml IH ONCE STA Stop: 06/18/18 19:58 Last Admin: 06/18/18 20:14 Dose: 3 ml Famotidine (Pepcid) 20 mg PO STAT STA Stop: 06/18/18 15:00 Last Admin: 06/18/18 15:37 Dose: 20 mg Ibuprofen (Motrin Tab) 600 mg PO STAT STA Stop: 06/18/18 15:00 Last Admin: 06/18/18 15:37 Dose: Not Given Non-Admin Reason: Patient Refused - Scribe Statement The provider has reviewed the documentation as recorded by the Mathieu Bernard Provider Scribe Attestation: All medical record entries made by the Scribsourav were at my direction and personally dictated by me. I have reviewed the chart and agree that the record accurately reflects my personal performance of the history, physical exam, medical decision making, and the department course for this patient. I have also personally directed, reviewed, and agree with the discharge instructions and disposition. Disposition/Present on Arrival - Present on Arrival Any Indicators Present on Arrival: No History of DVT/PE: No History of Uncontrolled Diabetes: No Urinary Catheter: No History of Decub. Ulcer: No History Surgical Site Infection Following: None - Disposition Have Diagnosis and Disposition been Completed?: Yes Diagnosis: Overdose, Suicidal ideation Disposition: Transfer [facility] Disposition Time: 18:40 Patient Plan: Transfer To Condition: GOOD Forms: [employer] (Mauritian)
[2018-06-19 07:34] VITALS: RESP 18
[2018-06-19 15:51] VITALS: O2SAT 99
[2018-06-19 18:34] VITALS: BP 126/84; PULSE 71; TEMP 98.4
--- NOTE | 2018-06-20 03:51 | CON ---
DATE: 06/19/2018 HISTORY OF PRESENT ILLNESS: In short, the patient is a 38-year-old, history of anxiety. The patient also has history of substance abuse. The patient was brought in by police and EMS. [place] un[place]. 911 was called by a jogger. The patient reported that she was feeling depressed and expressed suicidal attempt, but during the evaluation, the patient was providing inconsistent stories. Later on, the patient reported that she was not trying to hurt herself. This program writer offered admission to the Psychiatric Inpatient Unit, but the patient declined that offer. The patient was seen by [facility]. The patient was accepted under involuntary status. The patient is waiting for bed to be available. The patient was seen in the morning time. The patient presented to be depressed. The patient is currently on one-to-one. The patient is poor and unreliable historian. The patient is still denying that she wanted to kill herself, but it is questionable. The patient had a 10-year-old daughter and daughter was involved. Now, daughter was found. The patient had that case opened even in the past. Past psychiatric history; the patient denied history of suicidal attempts. The patient denied history of admissions to the psychiatric inpatient unit. Vital signs reviewed. Temperature 97.9, pulse 76, blood pressure 127/79, respiration 18, oxygen saturation is 99. Medications reviewed. The patient was on sodium chloride. Labs reviewed. Chemistry reviewed. Urine showed leukocyte esterase trace. The patient also was positive for PCP. Microbiology, no growth. MENTAL STATUS EXAMINATION: The patient presented to be depressed, flat affect. Thought process was concrete. Mood described, "I feel better." Affect was flat, mood incongruent. Thought content, the patient denied that she wanted to kill herself, but the patient is an unreliable historian. The patient denied hearing voices, denied seeing things. Insight and judgment seems to be limited. Impulses are unpredictable. IMPRESSION: Rule out major depressive disorder, rule out status post suicidal attempt. PLAN: The patient currently waiting for bed to be available. So far, the patient is calm and cooperative. Daughter was involved. The patient's daughter was located. This program writer will follow up on the patient until the patient will be transferred to the medical site. The patient should continue on on-to-one for elopement precaution and suicidal ideation. Thank you very much for letting me participate in the care of your patient. Should you have any questions, give me a call back. Yamile Jauregui MD
== END 2018-06-19 18:37 | disposition short-term general hospital (02) ==
LOC: ED 08:12
DX: T42.6X2A Poisoning by other antiepileptic and sedative-hypnotic drugs, intentional self-harm, initial encounter (principal); F19.90 Other psychoactive substance use, unspecified, uncomplicated; Y92.9 Unspecified place or not applicable; F41.9 Anxiety disorder, unspecified; F43.10 Post-traumatic stress disorder, unspecified; I10 Essential (primary) hypertension; E10.9 Type 1 diabetes mellitus without complications; F17.210 Nicotine dependence, cigarettes, uncomplicated
CPT/HCPCS: 70450; 71045; 80053; 80320; 80324; 80329; 80345; 80346; 80349; 80353; 80358; 80361; 81001; 82550; 82803; 82948; 83690; 83735; 83992; 85025; 85610; 85730; 87086; 90791; 93005; 99285; J7030